=== PATIENT | female | born 1950 | race Caucasian/White ===

== ENCOUNTER → 2024-10-02 | Outpatient (CLI) | payer BC, MEDICARE, SELFPAY ==
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
== END | disposition home or self-care (01) ==
PROVIDERS: PCP Family Medicine; Referring Provider Orthopaedic Surgery; Visit Provider Orthopaedic Surgery
DX: M17.12 Unilateral primary osteoarthritis, left knee (principal)
CPT/HCPCS: 73560

== ENCOUNTER → 2024-11-06 | Outpatient (CLI) | payer MEDICARE, BC, SELFPAY ==
--- NOTE | 2024-11-06 14:52 | XR_ITS ---
Examination: Left femur 2 views Technique one AP lateral left femur 2 views Exam date and time: November 06, 2024 1527 hours INDICATIONS: Pain in the left side region this week FINDINGS: Moderate narrowing left hip joint No left hip fracture or dislocation Healed fracture distal femur with residual deformity Advanced knee osteoarthritis IMPRESSION: Moderate narrowing left hip joint Healed fracture distal left femur Advanced knee osteoarthritis
== END | disposition home or self-care (01) ==
PROVIDERS: Referring Provider Orthopaedic Surgery; Visit Provider Orthopaedic Surgery
DX: M17.12 Unilateral primary osteoarthritis, left knee (principal); M25.852 Other specified joint disorders, left hip; Z87.81 Personal history of (healed) traumatic fracture
CPT/HCPCS: 73552

== ENCOUNTER 2024-11-20 14:31 | Emergency (ER) | payer MEDICARE, BC, SELFPAY ==
--- NOTE | 2024-11-20 14:50 | EKG_ITS ---
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
[2024-11-20 14:51] VITALS: BP 175/96; PULSE 73; RESP 18; TEMP 37.1; O2SAT 97; BMI 31.2
--- NOTE | 2024-11-20 14:52 | XR_ITS ---
Examination: CT brain head without contrast. 2-D sagittal coronal reconstructions Date and time of exam:November 20, 2024 1630 hours INDICATIONS: Onset altered mental status today CTDI: vol (mGy):47 DLP: (mGycm):874 Technique: Multiple CT axial sections of the brain have been obtained, 5 mm slice thickness. Contrast has not been administered. 2-D sagittal, coronal reconstructions have been obtained Low dose protocols were performed. One or more of the following dose reduction techniques were used; automated exposure control, adjustment of the mA and/or KV according to patient size, use of iterative reconstruction technique. Findings: No significant ventricular enlargement. 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 No mass effect or midline shift Basal cisterns are not remarkable. Fourth ventricle is midline. Cranial vault intact. Impression: Negative for acute hemorrhage, mass effect or midline shift As clinically warranted, brain MRI follow-up would best assess for acute ischemic change
--- NOTE | 2024-11-20 14:53 | EDRME_ITS ---
Rapid Medical Screening Exam COUNT INCLUDES THE [facility] Arrival date/time: 11/20/24 14:31 74-year-old female with no known medical history presents to the emergency room with a chief complaint of altered mental status. at bedside states for the last month his 's mentation has progressively gotten worse. states that as of 3 days it has gotten severely worse to the point where she does not remember anything that is going on and walks around in circles. states she had some hardware removed from her spine last month and since then the symptoms began I have greeted and performed a focused initial assessment of this patient. A comprehensive ED assessment and evaluation of the patient, analysis of all test results, and completion of the medical decision making process will be conducted by additional ED providers. Chief Complaint: General Adult/Misc Complain Time Seen by Provider: 11/20/24 14:43 Vital signs: Vital Signs Temperature 98.7 F 11/20/24 14:51 Pulse Rate 73 11/20/24 14:51 Respiratory Rate 18 11/20/24 14:51 Blood Pressure 175/96 H 11/20/24 14:51 Pulse Oximetry (%) 97 11/20/24 14:51 Oxygen Delivery Method Room Air 11/20/24 14:51 Vital signs reviewed by provider: Yes
[2024-11-20 15:31] LABS: Basophils % (Auto) 1 % (0-2.5); Eosinophils # (Auto) 0.3 Thou/mm3 (0.0-0.5); Eosinophils % (Auto) 4 % (0-10); Hematocrit 35.8 % (36.0-46.0); Hemoglobin 12.3 g/dL (12.0-16.0); Immature Granulocytes % (Auto) 0 % (0-0); Immature Granulocytes Auto 0.02 Thou/mm3 (0.00-0.00); Lymphocytes # (Auto) 1.7 Thou/mm3 (1.0-4.8); Lymphocytes % (Auto) 23 % (10-50); Mean Corpuscular HGB Conc 34.4 g/dl (31.0-37.0); Mean Corpuscular Hemoglobin 29.9 pg (25.0-35.0); Mean Corpuscular Volume 87 fL (80-100); Monocytes # (Auto) 0.7 Thou/mm3 (0.0-0.8); Monocytes % (Auto) 10 % (0-12); Neutrophils # (Auto) 4.6 Thou/mm3 (1.8-7.7); Neutrophils % (Auto) 62 % (37-80); Nucleated Red Blood Cell % 0 /100 WBC (0); Platelet Count 318 Thou/mm3 (140-440); RDW Standard Deviation 39.8 fL (36.4-46.3); Red Blood Count 4.11 Miln/mm3 (4.00-5.20); White Blood Count 7.4 Thou/mm3 (3.6-11.0)
[2024-11-20 15:33] LABS: Collection Type, Urine Clean Catch; RBC,Urine 0 /hpf (0-3)
[2024-11-20 15:40] LABS: B-Type Natriuretic Peptide 41 pg/mL (0-100)
[2024-11-20 15:42] LABS: Alanine Aminotransferase 13 U/L (10-49); Albumin, Serum 4.2 gm/dL (3.4-4.8); Albumin/Globulin Ratio 1.3 (1.2-2.2); Alkaline Phosphatase 103 U/L (46-116); Anion Gap 9 (7-16); Aspartate Amino Transferase 10 U/L (0-34); BUN/Creatinine Ratio 16 Ratio (12-20); Bilirubin,Total 0.4 mg/dL (0.3-1.2); Blood Urea Nitrogen 18 mg/dL (9-23); Calcium 9.8 mg/dL (8.3-10.6); Calcium (Corrected) 9.8 mg/dL (8.5-10.1); Carbon Dioxide 26.5 mMol/L (20.0-31.0); Chloride 102 mMol/L (98-107); Creatinine (Component) 1.1 mg/dL (0.6-1.3); Estimated Creatinine Clearance 55.2 mL/min (>60); Globulin 3.2 gm/dL (2.3-3.5); Glucose 209 mg/dL (74-106); Magnesium 1.7 mg/dL (1.6-2.6); Osmolality,Calculated 281 (275-295); Potassium 3.8 mMol/L (3.4-5.1); Sodium 137 mMol/L (136-145); Total Protein 7.4 gm/dL (5.7-8.2); Troponin I < 0.020 ng/mL (0.0-0.045); eGFR 53 See Note
[2024-11-20 15:56] LABS: Amphetamine/Methamp Scrn,U Negative (Negative); Barbiturate Screen,Urine Negative (Negative); Benzodiazepines Screen,Urine Negative (Negative); Benzoylecgonine Screen, Ur Negative (Negative); Bilirubin,Urine Negative (Negative); Blood,Urine Negative (Negative); Clarity,Urine Turbid (Clear/Hazy); Color,Urine Yellow (Lt Yel-Yel); Fentanyl Screen,Urine Negative (Negative); Glucose, Urine 1+ (Negative); Hyaline Casts,Urine < 1 /hpf (0-1); Ketones,Urine Negative (Negative); Leukocyte Esterase,Urine Positive (Negative); Nitrite,Urine Negative (Negative); Opiate Screen,Urine Negative (Negative); PH,Urine 5.5 (5.0-7.0); Protein,Urine Trace (Neg - Trace); Specific Gravity,Urine 1.021 (1.001-1.035); Squamous Epithelial Cell,Urine 4 /hpf (0-5); THC Screen,Urine Negative (Negative); Urobilinogen,Urine Negative mg/dL (0.0-1.0); WBC,Urine 124 /hpf (0-5)
[2024-11-20 16:55] VITALS: BP 195/100; PULSE 67; RESP 20; TEMP 36.9; O2SAT 97
--- NOTE | 2024-11-20 17:16 | PD.EDADULT ---
ED General RME/HPI General Chief complaint: General Adult/Misc Complain Stated complaint: SURG ON 09/26. NOT RIGHT SINCE. CONFUSED. Time Seen by Provider: 11/20/24 14:43 Arrival date/time: 11/20/24 14:31 RME / HPI RME / HPI narrative: Patient is a pleasant 74 year old female who presents to the ED with her . They state that the patient has been having cognitive issues for approximately 1-2 months. Patient's states that the patient's cognitive issues seem to get worse after she had a knee surgery about 1 month ago. They describe episodes where the patient walks around in circles and mumbles. Also states that patient has been forgetful. There was an incident where that patient forgot how to open a car door. Patient denies any headache. She denies chest pain. Denies nausea or vomiting. Denies dizziness. No syncope or presyncope. Related Data Previous Rx's ?Medication ?Instructions ?Recorded cephalexin 500 mg capsule 500 mg PO QID 7 days #28 caps 11/20/24 Allergies Allergy/AdvReac Type Severity Reaction Status Date / Time No Known Allergies Allergy Verified 11/20/24 14:35 Review of Systems Review of Systems Systems Reviewed: All systems reviewed, normal except as documented ED Exam Narrative Physical exam: Constitutional: no acute distress, age appropriate, non-toxic Eyes: PERRL, conjunctivae w/o pallor, EOMI HENT: normocephalic, atraumatic. Oral mucosa moist Respiratory Effort: no stridor, effort normal, no retractions Breath sounds: Clear bilaterally; No rales, No rhonchi, No wheezing Cardiovascular: regular rhythm, S1 and S2 normal, no murmur Musculoskeletal: no deformities, no swelling, no LE edema Skin: warm, dry; No rash Neurology: alert, oriented X 4. GCS 15. 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 Cranial nerves II through XII intact. Lower extremity strength 5 out of 5 bilaterally. No pronator drift. Psychology: cooperative, normal mood Course Quality Measures none Orders Category Date Time Status Bedside Blood Glucose NOW Care 11/20/24 14:50 Completed EKG (ED ONLY) *Do not use* NOW Care 11/20/24 14:[address] head/brain wo con Stat Exams 11/20/24 14:52 Completed EKG (ED Only) Stat Exams 11/20/24 14:50 Draft BNP [B-Type Natriuretic Peptide] Stat Lab 11/20/24 15:14 Completed Blood Culture (Lab) Stat Lab 11/20/24 15:14 Received CBC Stat Lab 11/20/24 15:14 Completed Comprehensive Metabolic Panel Stat Lab 11/20/24 15:14 Completed Drug Screen,Urine Stat Lab 11/20/24 15:23 Completed Magnesium Stat Lab 11/20/24 15:14 Completed Troponin I Stat Lab 11/20/24 15:14 Completed Urinalysis Stat Lab 11/20/24 15:23 Completed Urine Culture Stat Lab 11/20/24 15:23 Received Ringers Lactated 1000 ml [Lactated Ringers] 1,000 ml Med 11/20/24 17:15 Discontinued IV 999 mls/hr [id number] [Rocephin] 1,000 mg Med 11/20/24 17:15 Discontinued SODIUM CHLORIDE 0.9% (Popper) [Ns 0.9% (P)] 50 ml IV X1 cloNIDine HCL [Catapres] Med 11/20/24 17:14 Discontinued 0.1 mg PO X1 ONE Vital Signs Vital signs: Vital Signs Temperature 98.7 F 11/20/24 14:51 Pulse Rate 73 11/20/24 14:51 Respiratory Rate 18 11/20/24 14:51 Blood Pressure 175/96 H 11/20/24 14:51 Pulse Oximetry (%) 97 11/20/24 14:51 Oxygen Delivery Method Room Air 11/20/24 14:51 [facility] Patient data External records reviewed:: [facility] previous records Clinical information provided by:: patient and family Social determinants that could affect healthcare access:: none Patient has the following chronic illnesses:: None How is presenting disease/condition affected by chronic disease/condition?: no chronic disease Evaluation data The following diagnostics were reviewed and interpreted by me:: lab results, radiology exam(s) and EKG tracing(s) Lab and/or radiology exams considered but not ordered:: None Interpretation Summary: CBC shows no leukocytosis or anemia CMP shows no electrolyte abnormalities, no JERE. LFTs less than 3x upper limit of normal UA with pyuria Troponin wnl EKG medically necessary in the evaluation of altered mental status and interpreted by me and ED physician at the time of patient evaluation. Sinus rhythm with a rate of 83. OR and QT intervals within normal limits. No ST/T changes. No STEMI. Interpretation: Normal EKG Examination: CT brain head without contrast. 2-D sagittal coronal reconstructions Date and time of exam:November 20, 2024 1630 hours INDICATIONS: Onset altered mental status today Findings: No significant ventricular enlargement. 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 No mass effect or midline shift Basal cisterns are not remarkable. Fourth ventricle is midline. Cranial vault intact. Impression: Negative for acute hemorrhage, mass effect or midline shift As clinically warranted, brain MRI follow-up would best assess for acute ischemic change Medications Medications considered but not ordered:: n/a Medication administrations:: Medication Administration History Discontinued Medications Clonidine (Clonidine Hcl 0.1 Mg Tablet) 0.1 mg PO X1 ONE Stop: 11/20/24 17:15 Last Admin: 11/20/24 17:25 Dose: 0.1 mg Documented By: PAOLO Lactated Ringer's (Lactated Ringers) 1,000 mls @ 999 mls/hr IV .Q1H1M ONE Stop: 11/20/24 18:15 Last Admin: 11/20/24 17:26 Dose: Not Given Documented By: PAOLO Non-Admin Reason: Patient Refused Ceftriaxone Sodium 1,000 mg/ (Sodium Chloride) 50 mls @ 100 mls/hr IV X1 ONE Stop: 11/20/24 17:44 Last Admin: 11/20/24 17:27 Dose: Not Given Documented By: PAOLO Non-Admin Reason: Patient Refused see above Consultations Consultation(s) initiated? (list below): Yes Consultation #1 (Physician, Specialty, Details): 1530: Case discussed with neurologist on-call, Dr. Bond. Agrees that there is no indication for inpatient care. She will see the patient and follow on an outpatient basis. She agrees that this is likely new onset dementia. Time: 15:30 Diagnosis Differential Diagnosis ED Complaint MDM: See MDM Most likely diagnosis given after review of the tests above:: Cognitive issues Admission Indicated Admission indicated?: not indicated Explain why admission is indicated or not indicated:: See MDM Admission Request Was there a request for admission?: No Disposition Plan Disposition Plan: Discharge Discharge Attestation Discharge Attestation: The patient and all family members were given an opportunity to ask questions and understood the discharge instructions. Discharge instructions specifically effects, indications for sooner follow up or return to the emergency department, and the expected course of current diagnosis. Patient condition: Stable Medical Decision Making [facility] Narrative [facility] Narrative: 74-year-old female presents with complaint of cognitive issues and forgetfulness. Differential diagnoses include TIA, stroke, altered mental status, dementia, sepsis Low suspicion for sepsis as there is no fever, no tachycardia, patient does not appear ill or toxic. Do not suspect TIA or stroke based on history and exam, patient has a normal neurologic exam. Patient is not acutely altered. Suspect new onset dementia. Patient does have a mild urinary tract infection that will be treated outpatient. I discussed the patient's case with neurologist on-call, Dr. Bond, and she agrees that this is likely new dementia. She we will be happy to follow the patient on an outpatient basis. No indication at this time for inpatient management. Patient to follow-up with primary care and with Dr. Bond. Strict return to ED precautions given. Differential Diagnosis Differential Diagnosis: See MDM Lab Data 11/20/24 15:14 11/20/24 15:14 Labs: Lab Results 11/20/24 11/20/24 Range/Units 15:14 15:23 WBC 7.4 (3.6-11.0) Thou/mm3 RBC 4.11 (4.00-5.20) Miln/mm3 Hgb 12.3 (12.0-16.0) g/dL Hct 35.8 L (36.0-46.0) % MCV 87 (80-100) fL MCH 29.9 (25.0-35.0) pg MCHC 34.4 (31.0-37.0) g/dl RDW Std Deviation 39.8 (36.4-46.3) fL Plt Count 318 (140-440) Thou/mm3 Neut % (Auto) 62 (37-80) % Lymph % (Auto) 23 (10-50) % [place] % (Auto) 10 (0-12) % Eos % (Auto) 4 (0-10) % Baso % (Auto) 1 (0-2.5) % Neut # (Auto) 4.6 (1.8-7.7) Thou/mm3 Lymph # (Auto) 1.7 (1.0-4.8) Thou/mm3 [place] # (Auto) 0.7 (0.0-0.8) Thou/mm3 Eos # (Auto) 0.3 (0.0-0.5) Thou/mm3 Baso # (Auto) 0.0 (0.0-0.2) Thou/mm3 Immature Gran # (Auto) 0.02 H (0.00-0.00) Thou/mm3 Absolute Nucleated RBC 0.00 (0.00-0.00) Thou/mm3 Immature Gran % 0 (0-0) % Nucleated RBC % 0 (0) /100 WBC Sodium 137 (136-145) mMol/L Potassium 3.8 (3.4-5.1) mMol/L Chloride 102 (98-107) mMol/L Carbon Dioxide 26.5 (20.0-31.0) mMol/L Anion Gap 9 (7-16) BUN 18 (9-23) mg/dL Creatinine 1.1 (0.6-1.3) mg/dL Estim Creat Clear Calc 55.2 L (>60) mL/min eGFR 53 L (60 - ) See Note BUN/Creatinine Ratio 16 (12-20) Ratio Glucose 209 H (74-106) mg/dL Calculated Osmolality 281 (275-295) Calcium 9.8 (8.3-10.6) mg/dL Corrected Calcium 9.8 (8.5-10.1) mg/dL Magnesium 1.7 (1.6-2.6) mg/dL Total Bilirubin 0.4 (0.3-1.2) mg/dL AST 10 (0-34) U/L ALT 13 (10-49) U/L Alkaline Phosphatase 103 (46-116) U/L Troponin I < 0.020 (0.0-0.045) ng/mL B-Natriuretic Peptide 41 (0-100) pg/mL Total Protein 7.4 (5.7-8.2) gm/dL Albumin 4.2 (3.4-4.8) gm/dL Globulin 3.2 (2.3-3.5) gm/dL Albumin/Globulin Ratio 1.3 (1.2-2.2) Ur Collection Type Clean Catch Urine Color Yellow (Lt Yel-Yel) Urine Clarity Turbid A (Clear/Hazy) Urine pH 5.5 (5.0-7.0) Ur Specific [place] 1.021 (1.001-1.035) Urine Protein Trace (Neg - Trace) Urine Glucose (UA) 1+ A (Negative) Urine Ketones Negative (Negative) Urine Blood Negative (Negative) Urine Nitrite Negative (Negative) Urine Bilirubin Negative (Negative) Urine Urobilinogen (Auto) Negative (0.0-1.0) mg/dL Ur Leukocyte Esterase Positive (Negative) Urine RBC 0 (0-3) /hpf Urine WBC 124 H (0-5) /hpf Ur Squamous Epith Cells 4 (0-5) /hpf Urine Bacteria None (None) Hyaline Casts < 1 (0-1) /hpf Urine Opiates Screen Negative (Negative) Urine Fentanyl Screen Negative (Negative) Ur Barbiturates Screen Negative (Negative) U Amphetamin/Meth Scrn Negative (Negative) U Benzodiazepines Scrn Negative (Negative) U Cocaine Metab Screen Negative (Negative) U Marijuana (THC) Screen Negative (Negative) Discharge Plan Plan Patient Disposition: HOME (Self Care) Prescriptions/Referrals Prescriptions/Med Rec: New cephalexin 500 mg capsule 500 mg PO QID 7 Days Qty: 28 0RF Referrals: Yanique Sweeney MD [Primary Care Provider] - In 1 week Ranjeet Bond MD [Physician] - In 1 week Problem List Clinical Impression: Cognitive decline, UTI (urinary tract infection) Patient/Caregiver Discharge Instructions Education Materials: Cognitive Impairment Mild, ED CYSTITIS Female Adult Additional Instructions: Follow up with your PCP in 1-2 days for recheck of BP and blood sugar. Follow up with Dr. Bond's office. See above for contact information. Return to the ED at any time for new or worsening symptoms. Print Language: Greenlandic Stand Alone Forms: Janell Award Info., Patient Portal Info Letter
[2024-11-20 17:25] VITALS: BP 197/95; PULSE 67
[2024-11-20] MEDS: cloNIDine HCL 0.1 MG TABLET PO (17:25)
== END 2024-11-20 18:11 | disposition home or self-care (01) ==
PROVIDERS: Nurse Practitioner Family; Emergency Provider Emergency Medicine; PCP Family Medicine
DX: N39.0 Urinary tract infection, site not specified (principal); R41.81 Age-related cognitive decline; I49.1 Atrial premature depolarization
CPT/HCPCS: 36415; 70450; 80053; 80307; 81001; 83735; 83880; 84484; 85025; 87040; 87077; 87086; 87186; 93005; 99284; A9270

== ENCOUNTER 2024-11-26 19:24 | Inpatient (IN) | payer MEDICARE, BC, SELFPAY ==
[2024-11-26] VITALS (23 sets, daily range): BP systolic 159–232; BP diastolic 68–144; PULSE 65–86; RESP 15–26; TEMP 36.7–37.1; O2SAT 89–98; BMI 35.0
--- NOTE | 2024-11-26 19:34 | PD.EDNEURO ---
Neuro Symptoms Deficit-RME/HPI General Chief Complaint: Head Injury Stated Complaint: ABNORMAL CT Time Seen by Provider: 11/26/24 19:30 Arrival date/time: 11/26/24 19:24 Limitations: no limitations RME / HPI RME / HPI Narrative: DR. FUENTES MAIN ED EVALUATION: 74-year-old female presenting to the emergency department with dysphagia since November 20 that is ongoing, who is sent over from MRI for reported brain bleed . Last normal was November 20. Blood pressure is noted to be 230/126. The patient is complaining of headache, blurry vision, and neck pain. No weakness or numbness. She saw her primary care physician 2 days ago and was treated for UTI even though she did not have symptoms. Past surgical history lower extremity removal of a pin, right third. Right knee replacement over 20 years ago. No history of diabetes. Diagnosed with past blood pressure elevation 2 days ago by primary care was not started on medications yet. Family history: Mother living-90 years old alive diabetes. Father- secondary to pancreas. Social history: Non-smoker. Denies drug use. Related Data Previous Rx's ?Medication ?Instructions ?Recorded cephalexin 500 mg capsule 500 mg PO QID 7 days #28 caps 11/20/24 Allergies Allergy/AdvReac Type Severity Reaction Status Date / Time No Known Allergies Allergy Verified 11/20/24 14:35 Review of Systems Review of Systems Systems Reviewed: All systems reviewed, normal except as documented Narrative Review of Systems: GEN: No fever, no chills, no weight loss EYES: No discharge, + blurry vision, no pain HEENT: No ear pain, no congestion, no sore throat PULM: No shortness of breath, no cough, no congestion CV: No chest pain, no dyspnea on exertion, no palpitations GI: No nausea, no vomiting, no diarrhea, no pain, no constipation : No frequency, no urgency and no dysuria MUSC/SKEL: + neck pain, no back pain SKIN: No rash PSYCH: No hallucinations, no depression HEME/LYMPH: No easy bleeding or bruising tendencies NEURO: No weakness, + headache Past Medical History Social History SMOKING STATUS: Never smoker SUBSTANCE USE: does not use ALCOHOL: Never Past Medical History Comments PMH COMMENT: Past surgical history lower extremity removal of a pin, right third. Right knee replacement over 20 years ago. No history of diabetes. Diagnosed with past blood pressure elevation 2 days ago by primary care was not started on medications yet. Family history: Mother living-90 years old alive diabetes. Father- secondary to pancreas. ED Exam General Limitations: Present no limitations General appearance: Present alert and in no apparent distress Head Head exam: Present atraumatic, normocephalic and normal inspection Eye Eye exam: Present normal appearance, PERRL and EOMI ENT ENT exam: Present normal exam, normal oropharynx and mucous membranes moist Neck Neck exam: Present normal inspection, full ROM and trachea midline Chest Chest inspection: Present normal inspection and symmetric chest wall rise Respiratory Respiratory exam: Present normal lung sounds bilaterally Cardiovascular Cardiovascular exam: Present regular rate, normal rhythm and normal heart sounds Abdominal Exam Abdominal exam: Present soft and normal bowel sounds Extremities Exam Extremities exam: Present normal inspection and full ROM Back Exam Back exam: Present normal inspection and full ROM Neurological Exam Neurological exam: Present alert, oriented X3, CN II-XII intact and other (No facial weakness, no dysarthria, no dysphasia; normal sensation to touch; normal finger to nose test; GCS of 15. FROM of all 4 extremities with symmetrical strength. 5/5.) Psychiatric Psychiatric exam: Present normal affect and normal mood Skin Skin exam: Present warm, dry, intact and normal color Course Course Course Narrative: 1930: Stroke alert initiated. Orders made at this time are congruent stroke protocol. 1950: Telemetry neuro at bedside, Dr Sotomayor. Quality Measures none Orders Category Date Time Status Bedside Blood Glucose NOW Care 11/26/24 19:38 Active COVID-19 Screening Questionnaire NOW Care 11/26/24 22:04 Active Data Warehouse Specialist NOW Care 11/26/24 19:38 Active Continuous Pulse Oximetry NOW Care 11/26/24 19:38 Active Decision to Admit X1 Care 11/26/24 22:04 Completed EKG (ED ONLY) *Do not use* NOW Care 11/26/24 19:38 Completed Insert IV NOW Care 11/26/24 19:38 Active Miscellaneous Nursing Order X1 Care 11/26/24 22:37 Active NIH Stroke Scale now Care 11/26/24 19:38 Active NPO NOW Care 11/26/24 19:38 Active Neuro Check Q15MIN Care 11/26/24 19:39 Completed Nurse Swallow Screen x1 Care 11/26/24 19:38 Active Consult to Neurology / Tele-Neurology Routine Cons 11/26/24 19:38 Active EKG (ED Only) Stat Exams 11/26/24 19:38 Draft B-Type Natriuretic Peptide Stat Lab 11/26/24 19:36 Completed Beta HCG,Quantitative Stat Lab 11/26/24 19:36 Completed CBC Stat Lab 11/26/24 19:36 Completed Comprehensive Metabolic Panel Stat Lab 11/26/24 19:36 Completed Drug Screen,Urine Stat Lab 11/26/24 22:19 Completed HCG Titer if Positive Stat Lab 11/26/24 19:36 Completed Magnesium Stat Lab 11/26/24 19:36 Completed Partial Thromboplastin Time Stat Lab 11/26/24 19:36 Completed Prothrombin Time with INR Stat Lab 11/26/24 19:36 Completed Troponin I Stat Lab 11/26/24 19:36 Completed Urinalysis Stat Lab 11/26/24 22:19 Completed Dexamethasone Inj [Decadron Inj] Med 11/26/24 20:08 Discontinued 10 mg IVP X1 ONE Lisinopril [Prinivil] Med 11/26/24 22:45 Hold 20 mg PO QDAY Lisinopril [Prinivil] Med 11/26/24 22:15 Discontinued 40 mg PO QDAY Nicardipine/Ns 20Mg Ivpb [Cardene Ivpb] Med 11/26/24 20:08 Discontinued 20 mg in 200 ml IV 5 mg/hr Ondansetron Inj [Zofran Inj] Med 11/26/24 19:38 Discontinued 4 mg IV Q4HR PRN levETIRAcetam INJ [Keppra Inj] Med 11/26/24 20:08 Discontinued 1,000 mg IVP X1 ONE Vital Signs Vital signs: Vital Signs Temperature 98.8 F 11/26/24 19:52 Pulse Rate 70 11/26/24 19:52 Respiratory Rate 17 11/26/24 19:52 Blood Pressure 232/126 H 11/26/24 19:52 Pulse Oximetry (%) 95 11/26/24 19:52 Oxygen Delivery Method Room Air 11/26/24 19:52 Procedures -ED EKG Interpretation #1: Date of EK11/26/24 Time of EK:03 Rate: 72 Interpretation: Interpreted by me Additional EKG comment: sinus rhythm, rate 72, borderline left axis deviation, QTc 451 Neuro Symptoms / Deficit MDM Narrative MDM Narrative:: I, Anabell Blane, am scribing for and in the presence of Dr. Fuentes. Patient presents to the emergency department from MRI with a abnormal MRI and possibly a bleed . Patient immediately placed into room. Blood pressure is noted to be 230/126. The patient is complaining of headache, blurry vision, neck pain, and no weakness or numbness. She reports that she has had difficulty speaking since November 20. She saw her primary care physician 2 days ago and was treated for UTI even though she did not have symptoms. Normal stroke scale on arrival. 1999: Keppra IV, nicardipine drip to be normotensive as per telemetry neuro. Seizure precautions placed. 2014: Discussed with Dr. Tarango states that he told the durable medical equipment technician to send it to telemetry neuro. Teleneuro consulted approximately 2019 and still pending read. Teleneurologist states that once the interpretation is back and they may need transfer to higher level of care for biopsy. 2053 noticed hCG is positive. Nurses repeating lab. 2199-Discussed with teleneurology at approximately 2199. Request admit to the hospitalist service for stroke workup to include SANDRA, Holter monitor, aspirin 325 now and 81 mg daily, and to keep blood pressure normotensive. 2234: Internal medicine made me aware of Dr. Loomis's read on the patient's outpatient MRI. The medicine team wouls like to switch the patient to lisinopril PO and if the patient is having an acute stroke, have the patient's goal blood pressure be under 180-90. Requests to wean the patient off of Nicardipine. 0300: Medicine has been admitted to the medicine team however [place] did call to say that there might be an abnormality on her carotid ultrasound. The resident who accepted this patient has been called to report the finding to see if he needs to order any other studies inpatient. Patient data External records reviewed:: [facility] previous records (Reviewed last admission discharge dated 11/20/24, patient admitted for the following: Cognitive decline) Clinical information provided by:: patient and family Social determinants that could affect healthcare access:: none Patient has the following chronic illnesses:: PMHx: Past surgical history lower extremity removal of a pin, right third. Right knee replacement over 20 years ago. No history of diabetes. Diagnosed with past blood pressure elevation 2 days ago by primary care was not started on medications yet. Family history: Mother living-90 years old alive diabetes. Father- secondary to pancreas. Social history: Non-smoker. Denies drug use. How is presenting disease/condition affected by chronic disease/condition?: exacerbated by Evaluation data The following diagnostics were reviewed and interpreted by me:: lab results and EKG tracing(s) Lab and/or radiology exams considered but not ordered:: none Interpretation Summary: See above under MDM narrative. RADIOLOGY Procedure(s): MR head/brain wo/w con Accession Number(s): [id number] cc: Ousmane Loomis MD; Iona Espitia PA-C~ Examination: MRI of brain without intravenous contrast. MRI brain with intravenous contrast. Date and time of exam:November 26, 2024 1804 hrs. Comparison March 16, 2013 Indications: Disorientation today Technique: Multiple axial and sagittal images of the brain to been obtained. Siemens high-resolution 1.52 Ana short bore scanner utilized. Sagittal sections, T1 weighted images, TR 500, TE 14, are performed. Axial sections proton-density and T2-weighted images have been obtained. Inversion recovery axial images, TR 9260, TE 111, TR 2500. Diffusion weighted images, axial sections, TR 4800, TE 128, B value 1000. Axial sections, ADC map, TR 4800, TE 128. Axial and coronal images were also obtained post 19 cc gadolinium administered intravenously. Findings:: Enlargement of the sella turcica is not present. The optic chiasm and infundibular stalk are not remarkable. There is no localized enlargement of the medulla or ernesto. Fourth ventricle and cerebellar tonsils appear normal in position. No subacute area of hemorrhage density is seen. Fourth ventricle is midline. Mass in the cerebellopontine angle region is not evident. 7th and 8th nerve complexes exhibit symmetry Globes are symmetrical Orbital musculature including medial lateral rectus muscles do not exhibit abnormality Increased white matter signal is prominent Effacement of the cortical sulcal markings is not identified. Mass effect upon the ventricular system is not identified. 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 Dictated By: Ousmane Loomis MD Medications / Prescriptions Medications or Prescriptions considered but not ordered:: none Medication administrations:: Medication Administration History Acetaminophen (Acetaminophen 325 Mg Tablet) 650 mg PO Q6H PRN PRN Reason: Fever >100 or pain 1-3 Stop: 12/27/24 00:02 Aspirin (Aspirin Ec 81 Mg Tabec) 81 mg PO QDAY [facility] Stop: 12/27/24 08:59 Atorvastatin Calcium (Atorvastatin Calcium 10 Mg Tablet) 40 mg PO HS [facility] Stop: 12/27/24 00:09 Last Admin: 11/27/24 00:41 Dose: 40 mg Documented By: JEFF Cephalexin HCl (Cephalexin 250 Mg Capsule) 500 mg PO QID [facility] Stop: 12/04/24 00:14 Last Admin: 11/27/24 00:41 Dose: 500 mg Documented By: JEFF Labetalol HCl (Labetalol Inj 5 Mg/Ml Vial 20 Ml) 10 mg IVP Q2H PRN PRN Reason: sbp >180, Hold if HR <60 Stop: 12/27/24 03:56 Lisinopril (Lisinopril 20 Mg Tablet) 20 mg PO QDAY [facility] Stop: 12/26/24 22:44 Last Admin: 11/26/24 23:55 Dose: Not Given Documented By: JEFF Non-Admin Reason: hold per MD ZIMMERMAN Ondansetron HCl (Ondansetron Inj 2 Mg/Ml Inj 2 Ml) 4 mg IV Q6H PRN; Protocol PRN Reason: NAUSEA OR VOMITING Stop: 12/27/24 00:02 Discontinued Medications Aspirin (Aspirin 325 Mg Tablet) 325 mg PO X1 ONE Stop: 11/27/24 00:08 Last Admin: 11/27/24 00:40 Dose: 325 mg Documented By: JEFF Dexamethasone Sodium Phosphate (Dexamethasone Sod Phos Inj 10 Mg/Ml Vial) 10 mg IVP X1 ONE; Protocol Stop: 11/26/24 20:09 Last Admin: 11/26/24 20:20 Dose: 10 mg Documented By: JEFF Nicardipine/Sodium Chloride (Cardene Ivpb) 20 mg in 200 mls @ 50 mls/hr IV .Q4H PRN; Protocol PRN Reason: PER PROTOCOL Stop: 12/26/24 20:07 Last Titration: 11/26/24 23:55 Dose: 0 mg/hr, 0 mls/hr Documented By: Admin: 11/26/24 23:25 Dose: 7.5 mg/hr, 75 mls/hr Documented By: Titration: 11/26/24 23:25 Dose: Infused Documented By: Titration: 11/26/24 21:42 Dose: 7.5 mg/hr, 75 mls/hr Documented By: Admin: 11/26/24 20:21 Dose: 5 mg/hr, 50 mls/hr Documented By: JEFF Labetalol HCl (Labetalol Inj 5 Mg/Ml Vial 20 Ml) 10 mg IVP Q2H PRN PRN Reason: sbp 180mmHg, Hold if HR <60 Stop: 12/27/24 03:56 Levetiracetam (Levetiracetam Inj 100 Mg/Ml Vial 5ml) 1,000 mg IVP X1 ONE Stop: 11/26/24 20:09 Last Admin: 11/26/24 20:20 Dose: 1,000 mg Documented By: JEFF Lisinopril (Lisinopril 20 Mg Tablet) 40 mg PO QDAY [facility] Stop: 12/26/24 22:14 Last Admin: 11/26/24 22:57 Dose: Not Given Documented By: JEFF Non-Admin Reason: Discontinued Ondansetron HCl (Ondansetron Inj 2 Mg/Ml Inj 2 Ml) 4 mg IV Q4HR PRN PRN Reason: NAUSEA OR VOMITING Stop: 12/26/24 19:37 see above Consultations Consultation(s) initiated? (list below): Yes Consultation #1 (Physician, Specialty, Details): Spoke with Dr. Sotomayor from teleneurology. Consultation #2 (Physician, Specialty, Details): Discussed test HPI, PMHx, lab, radiology results and/or management with hospitalist. Will admit for further evaluation and management. Accepts patient for admission. Time: 22:00 Diagnosis Neuro Differential Diagnosis: other (tumor, bleed, bleeding around the tumor, seizure) Most likely diagnosis given after review of the tests above:: see below Admission Indicated Admission indicated?: indicated Admission Request Was there a request for admission?: Yes Admission Attestation Admission request attestation: Discussed case with [] from Hospitalist service regarding admission. Discussed patients ED course, exam findings, labs, and radiology results. The Hospitalist [agrees,declines] to accept the patient for admission. Disposition Plan Disposition Plan: Admit Critical Care Time Critical Care Time Critical Care Time: Yes Total Critical Care Time (min.): 60 Attestation: The high probability of sudden, clinically significant deterioration in the patient?s condition required the highest level of my preparedness to intervene urgently. The services I provided to this patient were to treat and/or prevent clinically significant deterioration. Services included the following: chart data review, reviewing nursing notes and/or old charts, documentation time, events solutions consultant collaboration regarding findings and treatment options, medication orders and management, direct patient care, vital sign assessments and ordering, interpreting and reviewing diagnostic studies and lab tests. Aggregate critical care time includes only time during which I was engaged in work directly related to the patient?s care, as described above, whether at bedside or elsewhere in the Emergency Department. It did not include time spent performing other reported procedures or the services of residents, students, nurses or physician assistants. Discharge Plan Plan Patient Disposition: Admit Acute Care w/in Hospital Patient condition on transfer: Stable Problem List Clinical Impression: Stroke
--- NOTE | 2024-11-26 19:36 | PC.NURSE ---
Case # [id number] for tele neuro
--- NOTE | 2024-11-26 19:38 | EKG_ITS ---
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
--- NOTE | 2024-11-26 19:50 | PC.NURSE ---
tele neuro MD Sotomayor speaking with pt
[2024-11-26 19:58] LABS: Basophils % (Auto) 1 % (0-2.5); Eosinophils # (Auto) 0.3 Thou/mm3 (0.0-0.5); Eosinophils % (Auto) 4 % (0-10); Hematocrit 36.2 % (36.0-46.0); Hemoglobin 12.4 g/dL (12.0-16.0); Immature Granulocytes % (Auto) 0 % (0-0); Immature Granulocytes Auto 0.03 Thou/mm3 (0.00-0.00); Lymphocytes # (Auto) 2.5 Thou/mm3 (1.0-4.8); Lymphocytes % (Auto) 33 % (10-50); Mean Corpuscular HGB Conc 34.3 g/dl (31.0-37.0); Mean Corpuscular Hemoglobin 29.6 pg (25.0-35.0); Mean Corpuscular Volume 86 fL (80-100); Monocytes # (Auto) 0.8 Thou/mm3 (0.0-0.8); Monocytes % (Auto) 10 % (0-12); Neutrophils % (Auto) 52 % (37-80); Nucleated Red Blood Cell % 0 /100 WBC (0); Platelet Count 334 Thou/mm3 (140-440); RDW Standard Deviation 39.7 fL (36.4-46.3); Red Blood Count 4.19 Miln/mm3 (4.00-5.20); White Blood Count 7.7 Thou/mm3 (3.6-11.0)
[2024-11-26 20:14] LABS: Partial Thromboplastin Time 27.2 Seconds (22.0-36.0); Prothrombin Time 11.2 Seconds (9.0-12.2)
--- NOTE | 2024-11-26 20:16 | PD.TNEURO ---
Tele Neuro Consultation Consultation Date 11/26/24 Most Recent Vital Signs Last Vital Signs Temp 98.8 F 11/26/24 19:52 Pulse 68 11/26/24 19:52 Resp 17 11/26/24 19:52 BP 232/126 H 11/26/24 19:52 Pulse Ox 95 11/26/24 19:52 O2 Del Method Room Air 11/26/24 19:52 Laboratory-Coagulation Panel PT 11.2 Seconds (9.0-12.2) 11/26/24 19:36 INR 1.0 (0.9-1.3) 11/26/24 19:36 APTT 27.2 Seconds (22.0-36.0) 11/26/24 19:36 Consultation Narrative [facility] TeleNeurology Consult Services Patient Name:???Annalise Rojas Date of :???1950 Date of Service:???11/26/2024 19:35:55 Diagnosis:?I63.89 - Cerebrovascular accident (CVA) due to other mechanism (HCCC) Impression: ?This consult was conducted in real-time using interactive audio and video technology. Patient was informed of the technology being used for this visit and agreed to proceed. Patient located in hospital and provider located at home/office setting. ? ?This is a 74 year old F with HTN who presents to [place], [place] at 11/26/2024 19:34:00 for complaints of abnormal MRI. ? ?She had an event 1 week ago of transient aphasia. The patient reports that the event resolved spontaneously, and she subsequently underwent a non-contrast computed tomography (CT) scan of the head, which was reported as negative. An outpatient MRI brain was ordered for further assessment. ? ?The patient underwent the MRI brain study on an outpatient basis earlier today. Following the completion of the study, the radiology personnel, possibly a power generation technician?, informed the patient that the MRI findings were abnormal and advised her to seek immediate evaluation in the emergency department. However, the patient states that the radiology personnel refused to provide any specific details regarding the nature of the abnormality. ? ?Upon presentation to the emergency department, the patient denies experiencing any current symptoms. A focused neurological examination reveals a NIHSS score of 0, indicating no evidence of neurological deficits. The patient appears cheerful and in no apparent distress. She also denies any history of malignancies or other significant medical conditions. Of note, though, she does not get her routine recommended cancer screening (colonoscopy, etc). ? ?The radiologist unfortunately has not put in a note yet for this MRI, despite it being performed hours ago and reportedly containing something requiring stat ED visit. I reviewed the MRI personally. There appears to be a right posterior quadrant lesion with contrast enhancement, which per my review could represent a small mass, but differential includes demyelinating disease, subacute stroke, possibly older scar/stroke. Final radiology expertise and read is still pending. The ED doctor is trying to reach radiology as well. Ultimately, radiololgy did read the MRI, and per their extertise was able to identify this rather as a subacute astroke, which is reassuring. This likely occured when she presented several days ago, but wasnt seen on imaging as only a CTH was done. Recommendations below. Recommendations: ?Goal normotension ?Patient no longer required any additional levetiracetam ?Aspirin 325 mg once now, then 81 mg daily. ?Atorvastatin 40 mg daily. ?TTE without bubble in hospital and Holter monitor on discharge. ?HbA1C, Lipid Panel, TSH. ?Lifestyle Modifications: Weight management (goal healthy BMI), smoking cessation if smoker, Mediterranean diet, exercise (moderate intensive aerobic exercise at least 3 days of the week for 20-60 minutes at a time per AHA guidelines, or as tolerated), active lifestyle, outpatient goal normotension, outpatient goal LDL <70. PCP to assist with these modifications and goals. ?Vessel imaging with MRA head without contrast and neck with contrast (routine, diagnostic), versus bilateral carotid doppler if unable. Advanced Imaging: CTA deferred because: Current physical exam at the time of my assessment is not highly suggestive of an acute surgically intervenable large vessel occlusion. Additionaly LKW >7 days. Should the physical exam worsen in the future, please reconsider advanced imaging and also urgently notify [facility], the neurology team, and/or call a new Stroke Alert. Metrics: Last Known Well: Unknown Dispatch Time: 11/26/2024 19:35:55 Arrival Time: 11/26/2024 19:34:00 Initial Response Time: 11/26/2024 19:43:30Symptoms: abnormal MRI . Initial patient interaction: 11/26/2024 19:48:58 NIHSS Assessment Completed: 11/26/2024 19:54:00Patient is not a candidate for Thrombolytic. Thrombolytic Medical Decision: 11/26/2024 19:54:00Patient was not deemed candidate for Thrombolytic because of following reasons: LKW outside 4.[address] unavailable - mri was done Primary Provider Notified of Diagnostic Impression and Management Plan on: 11/26/2024 20:16:11 History of Present Illness:Patient is a 74 year old Female. Patient was brought by private transportation with symptoms of abnormal MRI . This consult was conducted in real-time using interactive audio and video technology. Patient was informed of the technology being used for this visit and agreed to proceed. Patient located in hospital and provider located at home/office setting. This is a 74 year old F with HTN who presents to [place], [place] at 11/26/2024 19:34:00 for complaints of abnormal MRI. She had an event 1 week ago of transient aphasia. The patient reports that the event resolved spontaneously, and she subsequently underwent a non-contrast computed tomography (CT) scan of the head, which was reported as negative. An outpatient MRI brain was ordered for further assessment. The patient underwent the MRI brain study on an outpatient basis earlier today. Following the completion of the study, the radiology personnel, possibly a power generation technician?, informed the patient that the MRI findings were abnormal and advised her to seek immediate evaluation in the emergency department. However, the patient states that the radiology personnel refused to provide any specific details regarding the nature of the abnormality. Upon presentation to the emergency department, the patient denies experiencing any current symptoms. A focused neurological examination reveals a NIHSS score of 0, indicating no evidence of neurological deficits. The patient appears cheerful and in no apparent distress. She also denies any history of malignancies or other significant medical conditions. Of note, though, she does not get her routine recommended cancer screening (colonoscopy, etc). Past Medical History: Other PMH:? HTN Medications: No Anticoagulant use? No Antiplatelet use Reviewed EMR for current medications Allergies:? Reviewed Social History: Drug Use: No Family History: There is no family history of premature cerebrovascular disease pertinent to this consultation ROS : 14 Points Review of Systems was performed and was negative except mentioned in HPI. Past Surgical History: There Is No Surgical History Contributory To Today?s Visit Examination: BP(232/126),?Pulse(68), 1A: Level of Consciousness - Alert; keenly responsive?+ 0 1B: Ask Month and Age - Both Questions Right?+ 0 1C: Blink Eyes & Squeeze Hands - Performs Both Tasks?+ 0 2: Test Horizontal Extraocular Movements - Normal?+ 0 3: Test Visual Byrd - No Visual Loss?+ 0 4: Test Facial Palsy (Use Grimace if Obtunded) - Normal symmetry?+ 0 5A: Test Left Arm Motor Drift - No Drift for 10 Seconds?+ 0 5B: Test Right Arm Motor Drift - No Drift for 10 Seconds?+ 0 6A: Test Left Leg Motor Drift - No Drift for 5 Seconds?+ 0 6B: Test Right Leg Motor Drift - No Drift for 5 Seconds?+ 0 7: Test Limb Ataxia (FNF/Heel-Mejía) - No Ataxia?+ 0 8: Test Sensation - Normal; No sensory loss?+ 0 9: Test Language/Aphasia - Normal; No aphasia?+ 0 10: Test Dysarthria - Normal?+ 0 11: Test Extinction/Inattention - No abnormality?+ 0 NIHSS Score:?0 Pre-Morbid Modified [place] Scale:0 Points = No symptoms at all Spoke with :?ed provider This consult was conducted in real time using interactive audio and video technology. Patient was informed of the technology being used for this visit and agreed to proceed. Patient located in hospital and provider located at home/office setting. Patient is being evaluated for possible acute neurologic impairment and high probability of imminent or life-threatening deterioration. I spent total of 45 minutes providing care to this patient, including time for face to face visit via telemedicine, review of medical records, imaging studies and discussion of findings with providers, the patient and/or family. Dr Claudy Sotomayor [facility] For Inpatient follow-up with [facility] physician please call [facility] at . As we are not an outpatient service for any post hospital discharge needs please contact the hospital for assistance. If you have any questions for the [facility] physicians or need to reconsult for clinical or diagnostic changes please contact us via [facility] at .
[2024-11-26 20:19] LABS: Alanine Aminotransferase 17 U/L (10-49); Albumin, Serum 4.2 gm/dL (3.4-4.8); Albumin/Globulin Ratio 1.3 (1.2-2.2); Alkaline Phosphatase 100 U/L (46-116); Anion Gap 6 (7-16); Aspartate Amino Transferase 15 U/L (0-34); BUN/Creatinine Ratio 11 Ratio (12-20); Bilirubin,Total 0.4 mg/dL (0.3-1.2); Blood Urea Nitrogen 13 mg/dL (9-23); Calcium 9.7 mg/dL (8.3-10.6); Calcium (Corrected) 9.7 mg/dL (8.5-10.1); Chloride 102 mMol/L (98-107); Creatinine (Component) 1.2 mg/dL (0.6-1.3); Estimated Creatinine Clearance 50.1 mL/min (>60); Globulin 3.2 gm/dL (2.3-3.5); Glucose 138 mg/dL (74-106); Magnesium 1.8 mg/dL (1.6-2.6); Osmolality,Calculated 275 (275-295); Potassium 3.5 mMol/L (3.4-5.1); Sodium 137 mMol/L (136-145); Total Protein 7.4 gm/dL (5.7-8.2); Troponin I < 0.020 ng/mL (0.0-0.045); eGFR 48 See Note
[2024-11-26 20:20] LABS: B-Type Natriuretic Peptide 84 pg/mL (0-100)
[2024-11-26] MEDS: levETIRAcetam INJ 100 MG/ML VIAL 5ML 1000 MG IVP (20:20)
[2024-11-26] MEDS: DEXAMETHASONE SOD PHOS INJ 10 MG/ML VIAL IVP (20:20)
[2024-11-26] MEDS: NICARDIPINE/NS 20MG IVPB 20 MG/200 ML BAG 50 MG IV (20:21)
[2024-11-26 20:32] LABS: Beta HCG,Quantitative 9 mIU/mL (<5.0); HCG Titer if Positive Positive
--- NOTE | 2024-11-26 21:28 | PC.NURSE ---
notifeied MD Kunz pt face is flushed. no new orders recived
--- NOTE | 2024-11-26 21:35 | PC.NURSE ---
MD Seay in room assessing pt flushed face
[2024-11-26 22:28] LABS: Collection Type, Urine Voided
[2024-11-26 22:35] LABS: Bilirubin,Urine Negative (Negative); Blood,Urine Negative (Negative); Clarity,Urine Clear (Clear/Hazy); Color,Urine Colorless (Lt Yel-Yel); Glucose, Urine Negative (Negative); Ketones,Urine Negative (Negative); Leukocyte Esterase,Urine Negative (Negative); Nitrite,Urine Negative (Negative); Protein,Urine Negative (Neg - Trace); RBC,Urine 1 /hpf (0-3); Specific Gravity,Urine 1.008 (1.001-1.035); Squamous Epithelial Cell,Urine 1 /hpf (0-5); Urobilinogen,Urine Negative mg/dL (0.0-1.0); WBC,Urine 1 /hpf (0-5)
[2024-11-26 22:40] LABS: Amphetamine/Methamp Scrn,U Negative (Negative); Barbiturate Screen,Urine Negative (Negative); Benzodiazepines Screen,Urine Negative (Negative); Benzoylecgonine Screen, Ur Negative (Negative); Fentanyl Screen,Urine Negative (Negative); Opiate Screen,Urine Negative (Negative); THC Screen,Urine Negative (Negative)
--- NOTE | 2024-11-26 23:05 | PC.NURSE ---
MD Lange to call documenting RN on BP meds currently ordered and diet status
[2024-11-26] MEDS: NICARDIPINE/NS 20MG IVPB 20 MG/200 ML BAG 75 MG IV (23:25)
--- NOTE | 2024-11-26 23:34 | PC.NURSE ---
Called MD Romero again, he said to wait on giving PO BP med, MD will call back with update
--- NOTE | 2024-11-26 23:53 | PC.NURSE ---
Per Obad stop Nacardipine drip and hold PO BP meds for now
[2024-11-27] VITALS (27 sets, daily range): BP systolic 147–216; BP diastolic 77–103; PULSE 60–77; RESP 13–26; TEMP 36.1–37; O2SAT 89–99; BMI 35.0; BMI 34.9
--- NOTE | 2024-11-27 00:23 | ESHP_ITS ---
<Statement entered by Nisha Lambert MD - 11/27/24 05:32> 74-year-old female with multiple comorbidities including hypertension and obesity who came into the ER for evaluation status post MRI. Patient has been having difficulty finding words however denies any focal neurologic symptoms. In the ER, patient noted to have acute stroke in the posterior occipital and left parietal lobe and the MRI and telemetry neuro was consulted who stated the MRI finding is likely subacute. As a result, plan to admit the patient for stroke workup including obtaining echocardiogram, telemetry to evaluate for any arrhythmias that could be causing this patient's ischemic stroke. In addition, patient also noted to have significant hypertension with initial systolic blood pressure in the 230s for which nicardipine drip was started in the ER however we did discontinue nicardipine drip and plan to allow for slow decrease in blood pressure over the next 24 hours.I reviewed above note and agree with findings and plans. I have also personally examined the patient with medicine team and went over assessment and plan with medical team including continuous improvement intern and resident physician. Documentation for date of: 11/27/24 HPI History of Present Illness History of present illness: Annalise is a 74 y/o female with PMHx of obesity and newly diagnosed hypertension who comes in for an evaluation after having an MRI done today and was told to come to the ER. Patient reports that on October 22, 2024, she had her left knee replaced. About a month later, on November 19 she appeared to have an episode in which she had trouble finding words, make sentences and read a clock. She says she is never had the symptoms before and felt that she was off cognitively. She came to the ED and was worked up with head imaging and was told she had nothing and was clear for follow-up outpatient. She seen her primary care doctor the next day who had urged her to get an outpatient MRI scheduled. Today she went to get an MRI, and was told by the health information technician to go to the ED immediately after she had seen something on the MRI. She denies having previous stroke history, and says that she was recently diagnosed with high blood pressure about a week ago and her primary care office however does not remember what her blood pressure numbers were. She denies having any strokelike symptoms prior to this. She denies any recent travel, is not on any blood thinners. Denies any recent syncope, dizziness, weakness, confusion, or trauma. She also denies chest pain, shortness of breath, nausea, vomiting, however says she has a headache. She also says she was recently diagnosed with a UTI, has no history of UTIs and has been taking Keflex for it. Denies history of atrial fibrillation. She has never seen a inspector scales before. No other complaints at this time ED course: She came to the ED with a temperature of 98.7, heart rate 73, respiratory 18, saturating 97% room air, and 230 systolic blood pressure. She was worked up was found to have a white count of 7.7, hemoglobin of 12.4, sodium of 137, potassium 3.5, bicarb 29, BUN/creatinine 13 and 1.2 respectively, glucose 138, platelets 334, coag panel negative, troponin negative x 1. Teleneuro was consulted who gave NIHS score of 0. MRI was pending read, however shows acute infarcts both occipital posterior left parietal lobe, no abnormal enhancement right occipital lobe. However teleneuro had reviewed images which was read as subacute infarct. Patient was given Keppra 1 g, Decadron 10 mg, was put on nicardipine drip. Medicine was consulted and patient admitted to floors Past medical history: As above Surgical history: Hip operation 25 years ago, left knee and hip operation about a month ago Allergies: No known allergies Meds: Fosinopril 10 mg Family history: No family history of medical problems including diabetes mellitus, heart disease, stroke Social history: Born and raised in [place], has 1 daughter. No recent travel. Does not drink, no smoking history or drug use history. Makes all her meals. Lives with her . Review of Systems Review of Systems Narrative Review of Systems: Constitutional: No fever, chills, fatigue, weakness, weight loss HEENT: No eye pain, vision loss, ear pain, hearing loss, dysphagia, Cardiovascular: No chest pain, palpitations, edema, pain with walking Respiratory: No cough, shortness of breath, wheezing GI: No NVD, abdominal pain, constipation, blood in stool, loss of appetite, heartburn Extremities: No presence of pitting edema MSK: No back pain, joint pain, joint swelling Neuro: No dizziness, numbness, weakness, positive headaches, no seizures, tremors Psych: No anxiety, depression Exam Vital Signs Temp Pulse Resp BP Pulse Ox O2 Del Method 98.2 F 77 17 159/73 H 93 L Room Air 11/26/24 23:29 11/26/24 23:45 11/26/24 23:45 11/26/24 23:45 11/26/24 23:45 11/26/24 23:29 Narrative Exam General: AAOx3, NAD, obese female, pleasant HEENT: Moist mucous membranes, conjunctiva clear, EOMI, PERRLA, Cardiovascular: Pansystolic murmur, radial pulses +2 bilat, RRR Pulmonary: CTAB bilat no cough, no wheezing GI: No tenderness to light or deep palpitation, no guarding, rigidity, rebound tenderness or distension Extremities: No presence of trace or pitting edema in lower extremities bilaterally, dorsalis pedis pulses +2 bilaterally Neuro: AAOx3, no focal motor or sensory deficits in the UE or LE bilat Psych: Good judgement, thought and behavior. Cooperative Results: Labs 11/26/24 19:36 11/26/24 19:36 Labs: Short CBC 11/26/24 Range/Units 19:36 WBC 7.7 (3.6-11.0) Thou/mm3 Hgb 12.4 (12.0-16.0) g/dL Hct 36.2 (36.0-46.0) % Plt Count 334 (140-440) Thou/mm3 BMP 11/26/24 19:36 Sodium 137 Potassium 3.5 Chloride 102 Carbon Dioxide 29.0 BUN 13 Creatinine 1.2 Glucose 138 H Calcium 9.7 Cardiac Enzymes 11/26/24 Range/Units 19:36 Troponin I < 0.020 (0.0-0.045) ng/mL Liver Function 11/26/24 Range/Units 19:36 Total Bilirubin 0.4 (0.3-1.2) mg/dL AST 15 (0-34) U/L ALT 17 (10-49) U/L Alkaline Phosphatase 100 (46-116) U/L Albumin 4.2 (3.4-4.8) gm/dL Urine 11/26/24 Range/Units 22:19 Urine Color Colorless A (Lt Yel-Yel) Urine Clarity Clear (Clear/Hazy) Urine pH 7.0 (5.0-7.0) Ur Specific [place] 1.008 (1.001-1.035) Urine Protein Negative (Neg - Trace) Urine Glucose (UA) Negative (Negative) Quality Measures Quality Measures none Advance care planning discussed with:: patient Medications Home Medications and Allergies Allergies Allergy/AdvReac Type Severity Reaction Status Date / Time No Known Allergies Allergy Verified 11/20/24 14:35 Visit Medications Acetaminophen (Acetaminophen 325 Mg Tablet) 650 mg PO Q6H PRN PRN Reason: Fever >100 or pain 1-3 Stop: 12/27/24 00:02 Aspirin (Aspirin Ec 81 Mg Tabec) 81 mg PO QDAY [facility] Stop: 12/27/24 08:59 Atorvastatin Calcium (Atorvastatin Calcium 10 Mg Tablet) 40 mg PO HS [facility] Stop: 12/27/24 00:09 Cephalexin HCl (Cephalexin 250 Mg Capsule) 500 mg PO QID [facility] Stop: 12/04/24 00:14 Lisinopril (Lisinopril 20 Mg Tablet) 20 mg PO QDAY [facility] Stop: 12/26/24 22:44 Last Admin: 11/26/24 23:55 Dose: Not Given Ondansetron HCl (Ondansetron Inj 2 Mg/Ml Inj 2 Ml) 4 mg IV Q6H PRN; Protocol PRN Reason: NAUSEA OR VOMITING Stop: 12/27/24 00:02 Discontinued Medications Aspirin (Aspirin 325 Mg Tablet) 325 mg PO X1 ONE Stop: 11/27/24 00:08 Dexamethasone Sodium Phosphate (Dexamethasone Sod Phos Inj 10 Mg/Ml Vial) 10 mg IVP X1 ONE; Protocol Stop: 11/26/24 20:09 Last Admin: 11/26/24 20:20 Dose: 10 mg Nicardipine/Sodium Chloride (Cardene Ivpb) 20 mg in 200 mls @ 50 mls/hr IV .Q4H PRN; Protocol PRN Reason: PER PROTOCOL Stop: 12/26/24 20:07 Last Titration: 11/26/24 23:55 Dose: 0 mg/hr, 0 mls/hr Levetiracetam (Levetiracetam Inj 100 Mg/Ml Vial 5ml) 1,000 mg IVP X1 ONE Stop: 11/26/24 20:09 Last Admin: 11/26/24 20:20 Dose: 1,000 mg Lisinopril (Lisinopril 20 Mg Tablet) 40 mg PO QDAY [facility] Stop: 12/26/24 22:14 Last Admin: 11/26/24 22:57 Dose: Not Given Ondansetron HCl (Ondansetron Inj 2 Mg/Ml Inj 2 Ml) 4 mg IV Q4HR PRN PRN Reason: NAUSEA OR VOMITING Stop: 12/26/24 19:37 Assessment & Plan Plan Assessment Annalise is a 74 y/o female with PMHx of obesity and newly diagnosed hypertension who was admitted for acute versus subacute CVA. #CVA, acute versus subacute There was concern for patient having subacute stroke and interpretation by [facility] neurologist on MRI is subacute stroke MRI brain read shows read of being acute stroke in posterior occipital and left parietal lobe. Patient's symptoms appeared to have occurred last week, patient was admitted however had CT head on November 20 which was unremarkable and in-house neurologist did not recommend inpatient admission Patient with symptoms lined up well with subacute CVA as patient does not have symptoms at this time, however it does have a headache NIHSS score of 0 in ER At this point we will continue with permissive hypertension due to possible acuity of CVA Plan: ? Neurology consulted, appreciate recs ? Speech therapy ? Echo ? Neurochecks every 4 hours ? Head of bed elevation 30 degrees ? DVT prophylaxis ? Bedrest ? A1c, lipid profile, TSH for cardiac stratification ? Telemetry ? Carotid duplex ultrasound ? Will keep permissive hypertension at this time ? Continue with Lipitor 40 mg at bedtime ? Continue with ASA 81 mg after 325 mg loading dose #Hypertensive emergency, improving #History of hypertension Blood pressure of 230 systolic when came in, also had a headache Patient was on nicardipine drip in the ED, however weaned off Plan: ? Do not correct systolic blood pressure more than 25% within the first 24 hours ? Will continue to keep permissive hypertension #Health Maintenance Disposition: Telemetry DVT prophylaxis: Lovenox GI prophylaxis: None indicated at this time Diet: Cardiac CODE STATUS: Full Patient seen and care discussed with my attending physician, Dr. Petra Lange, PGY-1
[2024-11-27] MEDS: Aspirin 325 MG TABLET PO (00:40)
[2024-11-27] MEDS: ATORVASTATIN CALCIUM 10 MG TABLET 40 MG PO (00:41)
[2024-11-27] MEDS: cephALEXin 250 MG CAPSULE 500 MG PO ×5 (00:41→20:10)
--- NOTE | 2024-11-27 01:22 | XR_ITS ---
Examination: Carotid arterial duplex scan, ultrasound. Date and time of exam: November 27, 2024 0048 hrs. Indications: Onset dizziness altered mental status today Technique: Multiple sonographic images have been obtained of the carotid arteries and vertebral arteries, B-mode/grayscale imaging and Doppler spectral analysis and color flow Peak systolic and diastolic velocities have been recorded. Systolic diastolic ratios have been calculated. Findings: Right peak systolic velocities: Distal internal carotid artery peak systolic velocity is 0.3 M/sec Proximal internal carotid artery peak systolic velocity is 0.4 M/sec Carotid bifurcation peak systolic velocity is 0.5 M/sec External carotid artery peak systolic velocity is 1.2 M/sec Vertebral artery flow is antegrade. Left peak systolic velocities: Distal internal carotid artery peak systolic velocity is 0.5 M/sec Proximal internal carotid artery peak systolic velocity is 0.2 M/sec Carotid bifurcation peak systolic velocity is 0.7 M/sec External carotid artery peak systolic velocity is 1.0 M/sec Vertebral artery flow is not visualized Doppler waveform analysis demonstrates no spectral broadening Impression: Right internal carotid artery demonstrates 0 stenosis. Left internal carotid artery demonstrates 0-10% stenosis. No left vertebral artery flow noted, consider MR A neck MRA brain without contrast follow-up
--- NOTE | 2024-11-27 02:30 | PRELIM_ITS ---
Ultrasound carotid, bilateral with wave Doppler spectral analysis. November 27, 2024 0048 hours Clinical history: Stroke Comparison: None. Findings: Ashley scale, color flow and spectral Doppler evaluation of the carotid and vertebral arteries were performed bilaterally. Right: The common carotid, external/internal carotid and vertebral arteries demonstrate normal color flow and spectral profile. There are no focal stenotic plaques or vessel wall calcification. Normal antegrade flow is noted in the vertebral artery. Left: The common carotid, external/internal carotid and vertebral arteries demonstrate normal color flow and spectral profile. There are no focal stenotic plaques or vessel wall calcification. The left vertebral artery is not visualized. Doppler profile: Right Left ICA 0.4 cm/sec 0.5 cm/sec CCA 0.5 cm/sec 0.8 cm/sec ICA/CCA 0.8 0.7 Impression: No hemodynamically significant carotid artery stenosis bilaterally. Normal antegrade flow in the right vertebral artery. The left vertebral artery is not visualized, possibly occluded, correlation with CTA is recommended. Discussion Details: Results verbally communicated to : Dr Seay at 02:18 AM 11/27/2024 Report Electronically Signed By: Jonah Delcid 11/27/2024 2:29:42 AM [EST]
--- NOTE | 2024-11-27 03:44 | XR_ITS ---
Examinations: MRI Brain without intravenous contrast. MRA brain without intravenous contrast. MRA carotids without intravenous contrast 3-D vascular reconstructions Date and time of exam: November 27, 2024 1800 hrs. Comparison November 18, 2024 Indications:: History CVA Brain MRI yesterday, altered mental status Technique: Multiple axial and sagittal images of the brain have been obtained MRA brain carotid images without contrast obtained, including 3-D postprocessing, vascular maximum intensity projection images Findings: [place] is not enlarged. The optic chiasm and infundibular stalk are not remarkable. Prepontine and interpeduncular cisterns are not enlarged. No localized enlargement of the medulla or [place]. Fourth ventricle and cerebellar tonsils normal in position. Subacute hemorrhage is not seen. Fourth ventricle is midline. Mass in the cerebellopontine angle region is not evident. 7th and 8th nerve complexes exhibits symmetry. Globes are symmetrical with no retro-orbital mass. Increased white matter signal noted especially posterior cortex on the FLAIR images Diffusion-weighted images demonstrate foci restricted diffusion again noted in the occipital lobes and posterior left parietal lobe Mass-effect upon the ventricular system is not identified. MRA carotid images no significant stenoses. MRA brain images 90% stenosis left middle cerebral artery trifurcation vessel, 80% stenosis P1 segment left posterior cerebral artery Impression: Again noted acute/subacute infarcts occipital lobes left parietal lobe 90% stenosis left middle cerebral artery trifurcation vessel 80% stenosis P1 segment left posterior cerebral artery
--- NOTE | 2024-11-27 03:55 | PC.NURSE ---
Spoke to MD Hurt about BP perameters. to put order in
[2024-11-27 05:09] LABS: Basophils % (Auto) 0 % (0-2.5); Eosinophils % (Auto) 0 % (0-10); Hematocrit 38.6 % (36.0-46.0); Hemoglobin 13.2 g/dL (12.0-16.0); Immature Granulocytes % (Auto) 0 % (0-0); Immature Granulocytes Auto 0.02 Thou/mm3 (0.00-0.00); Lymphocytes # (Auto) 0.9 Thou/mm3 (1.0-4.8); Lymphocytes % (Auto) 11 % (10-50); Mean Corpuscular HGB Conc 34.2 g/dl (31.0-37.0); Mean Corpuscular Hemoglobin 29.3 pg (25.0-35.0); Mean Corpuscular Volume 86 fL (80-100); Monocytes # (Auto) 0.1 Thou/mm3 (0.0-0.8); Monocytes % (Auto) 1 % (0-12); Neutrophils # (Auto) 7.2 Thou/mm3 (1.8-7.7); Neutrophils % (Auto) 88 % (37-80); Nucleated Red Blood Cell % 0 /100 WBC (0); Platelet Count 307 Thou/mm3 (140-440); RDW Standard Deviation 39.1 fL (36.4-46.3); White Blood Count 8.2 Thou/mm3 (3.6-11.0)
[2024-11-27 05:26] LABS: Glucose Estimated Average 194 mg/dL (80-131); Hemoglobin A1C 8.4 % Hgb (4.8-6.0)
[2024-11-27 05:30] LABS: Alanine Aminotransferase 17 U/L (10-49); Albumin, Serum 4.3 gm/dL (3.4-4.8); Albumin/Globulin Ratio 1.3 (1.2-2.2); Alkaline Phosphatase 103 U/L (46-116); Anion Gap 9 (7-16); Aspartate Amino Transferase 15 U/L (0-34); BUN/Creatinine Ratio 12 Ratio (12-20); Bilirubin,Total 0.5 mg/dL (0.3-1.2); Blood Urea Nitrogen 13 mg/dL (9-23); Calcium 9.6 mg/dL (8.3-10.6); Calcium (Corrected) 9.6 mg/dL (8.5-10.1); Cardiac Risk Estimate 3.1 RATIO (3.7-5.6); Chloride 103 mMol/L (98-107); Cholesterol 183 mg/dL (132-200); Creatinine (Component) 1.1 mg/dL (0.6-1.3); Estimated Creatinine Clearance 54.7 mL/min (>60); Globulin 3.3 gm/dL (2.3-3.5); Glucose 330 mg/dL (74-106); HDL Cholesterol 60 mg/dL (40-60); LDL Cholesterol,Calculated 107 mg/dL (0-130); Magnesium 1.7 mg/dL (1.6-2.6); Osmolality,Calculated 286 (275-295); Phosphorous 2.9 mg/dL (2.4-5.1); Potassium 3.8 mMol/L (3.4-5.1); Sodium 137 mMol/L (136-145); Thyroid Stimulating Hormone 0.95 uIU/mL (0.55-4.78); Total Protein 7.6 gm/dL (5.7-8.2); Triglycerides 80 mg/dL (30-150); eGFR 53 See Note
--- NOTE | 2024-11-27 07:45 | PC.NURSE ---
NURSING DOCUMENTATION DONE AT 0718 DONE CHARTED BY ALINA WAGONER, NOT VIJAY WAGONER.
--- NOTE | 2024-11-27 09:03 | PC.NURSE ---
spoke with Dr. Gao to confirm not completing NIHSS scale, patient passed swallow screen okay to have diet
--- NOTE | 2024-11-27 09:03 | PC.NURSE ---
Consulting Engineer: Informed MD Gao that since patient received an MRI with contrast after 1800 last night (11/26), she cannot have another MRI until after 1800 tonight.
[2024-11-27] MEDS: ASPIRIN EC 81 MG TABEC PO (09:55)
[2024-11-27] MEDS: CLOPIDOGREL BISULFATE 75 MG TABLET PO (12:30)
--- NOTE | 2024-11-27 13:43 | PCS.ST ---
Swallow evaluation completed. No dysphagia. Very mild anomia, no aphasia. Recommended to continue on regular consistency diet. Evaluation only.
--- NOTE | 2024-11-27 13:48 | PC.PT ---
PT eval only. Patient is I with transfers and ambulation with walker.
--- NOTE | 2024-11-27 15:49 | ESPR_ITS ---
Documentation for date of: 11/27/24 Subjective Subjective Interval history: Patient was seen and examined by the bedside. No acute overnight events. Patient reports feeling better, reported that approximately a week ago she started to have problems with expressive speech, it was hard to find the words and experience problems reading clock time and text on the phone. She also reported that her found him walking in a circles at home and brought her to the ED, they did a CT scan which was negative and she was discharged home. Today she denies any problem with weakness, reports that her speech has improved, denies weakness, problems with vision. MR angiography is pending, per radiology patient need to have at least 24 hours after the previous contrast injections before doing the new scan. A1c levels is 8.8. Exam Vital Signs Temp Pulse Resp BP Pulse Ox O2 Del Method 97.3 F 76 15 153/95 H 98 Room Air 11/27/24 12:00 11/27/24 12:00 11/27/24 12:00 11/27/24 12:00 11/27/24 12:11/27/24 12:00 Narrative Exam Physical Exam General: Awake and in no acute distress. Conversational and non-toxic appearing. Speech appears slightly slow. HEENT: Normocephalic, atraumatic, mucous membranes moist. Heart: Regular rate and rhythm, no murmurs. Lungs: Clear to auscultation with no wheezing or crackles. Abdomen: Soft, nondistended, nontender, positive bowel sounds. ?No guarding or rebound tenderness. Neurologic: Alert and oriented x3, no gross neurological deficit, and patient able to move all 4 extremities. Extremities: No edema. Skin: No rash or ecchymoses. Objective Labs 11/28/24 05:16 11/28/24 05:16 Labs: Laboratory Results - last 24 hr 11/26/24 11/26/24 11/27/24 19:36 22:19 04:54 WBC 7.7 8.2 RBC 4.19 4.50 Hgb 12.4 13.2 Hct 36.2 38.6 MCV 86 86 MCH 29.6 29.3 MCHC 34.3 34.2 RDW Std Deviation 39.7 39.1 Plt Count 334 307 Neut % (Auto) 52 88 H Lymph % (Auto) 33 11 [place] % (Auto) 10 1 Eos % (Auto) 4 0 Baso % (Auto) 1 0 Neut # (Auto) 4.0 7.2 Lymph # (Auto) 2.5 0.9 L [place] # (Auto) 0.8 0.1 Eos # (Auto) 0.3 0.0 Baso # (Auto) 0.0 0.0 Immature Gran # (Auto) 0.03 H 0.02 H Absolute Nucleated RBC 0.00 0.00 Immature Gran % 0 0 Nucleated RBC % 0 0 PT 11.2 INR 1.0 APTT 27.2 Sodium 137 137 Potassium 3.5 3.8 Chloride 102 103 Carbon Dioxide 29.0 25.0 Anion Gap 6 L 9 BUN 13 13 Creatinine 1.2 1.1 Estim Creat Clear Calc 50.1 L 54.7 L eGFR 48 L 53 L BUN/Creatinine Ratio 11 L 12 Glucose [address] Glu mg/dL 194 H Hemoglobin A1c 8.4 H Calculated Osmolality 275 286 Calcium 9.7 9.6 Corrected Calcium 9.7 9.6 Phosphorus 2.9 Magnesium 1.8 1.7 Total Bilirubin 0.4 0.5 AST 15 15 ALT 17 17 Alkaline Phosphatase 100 103 Troponin I < 0.020 B-Natriuretic Peptide 84 Total Protein 7.4 7.6 Albumin 4.2 4.3 Globulin 3.2 3.3 Albumin/Globulin Ratio 1.3 1.3 Triglycerides 80 Cholesterol 183 LDL Cholesterol, Calc 107 HDL Cholesterol 60 Cholesterol/HDL Ratio 3.1 L TSH 0.95 Beta HCG, Quant 9 Ur Collection Type Voided Urine Color Colorless A Urine Clarity Clear Urine pH 7.0 Ur Specific [place] 1.008 Urine Protein Negative Urine Glucose (UA) Negative Urine Ketones Negative Urine Blood Negative Urine Nitrite Negative Urine Bilirubin Negative Urine Urobilinogen (Auto) Negative Ur Leukocyte Esterase Negative Urine RBC 1 Urine WBC 1 Ur Squamous Epith Cells 1 Urine Bacteria None Urine Opiates Screen Negative Urine Fentanyl Screen Negative Ur Barbiturates Screen Negative U Amphetamin/Meth Scrn Negative U Benzodiazepines Scrn Negative U Cocaine Metab Screen Negative U Marijuana (THC) Screen Negative HCG (Qual) Positive Quality Measures Quality Measures VTE prophylaxis Advance care planning discussed with:: other Assessment & Plan Assessment Current Active Medications: Generic Name Dose Route Start Last Admin Trade Name Freq PRN Reason Stop Dose Admin Acetaminophen 650 mg 11/27/24 00:03 Acetaminophen 325 Mg Tablet PO 12/27/24 00:02 Q6H PRN Fever >100 or pain 1-3 Aspirin 81 mg 11/27/24 09:00 11/27/24 09:55 Aspirin Ec 81 Mg Tabec PO 12/27/24 08:59 81 mg QDAY STAR Administration Atorvastatin Calcium 40 mg 11/27/24 00:10 11/27/24 00:41 Atorvastatin Calcium 10 Mg Tablet PO 12/27/24 00:09 40 mg HS STAR Administration Cephalexin HCl 500 mg 11/27/24 00:15 11/27/24 12:29 Cephalexin 250 Mg Capsule PO 12/04/24 00:14 500 mg QID STAR Administration Clopidogrel Bisulfate 75 mg 11/27/24 11:45 11/27/24 12:30 Clopidogrel Bisulfate 75 Mg Tablet PO 12/27/24 11:44 75 mg QDAY STAR Administration Dextrose 25 ml 11/27/24 11:32 Dextrose 50%-Water Inj 50 Ml Syringe IV 12/27/24 11:31 Q15MIN PRN BG 50-70 responsive npo pt Dextrose 50 ml 11/27/24 11:32 Dextrose 50%-Water Inj 50 Ml Syringe IV 12/27/24 11:31 Q15MIN PRN BG <50 OR BG <70 & pt unresponsive Glucagon 1 mg 11/27/24 11:32 Glucagon Inj 1 Mg Vial IM Q15MIN PRN BG <70, and no IV access Insulin Human Lispro 0 unit 11/27/24 17:00 Insulin Lispro (Admelog) 1 Unit/0.01 Ml Unit SC 12/27/24 16:59 AC [facility] Protocol Labetalol HCl 10 mg 11/27/24 04:13 Labetalol Inj 5 Mg/Ml Vial 20 Ml IVP 12/27/24 03:56 Q2H PRN sbp >180, Hold if HR <60 Lisinopril 20 mg 11/26/24 22:45 11/26/24 23:55 Lisinopril 20 Mg Tablet PO 12/26/24 22:44 Not Given QDAY STAR Ondansetron HCl 4 mg 11/27/24 00:03 Ondansetron Inj 2 Mg/Ml Inj 2 Ml IV 12/27/24 00:02 Q6H PRN NAUSEA OR VOMITING Protocol Plan The patient is a 74 y/o female with previous medical history of obesity and hypertension. #CVA, acute versus subacute #Ischemic stroke There was concern for patient having subacute stroke and interpretation by [facility] neurologist on MRI is subacute stroke MRI brain read shows read of being acute stroke in posterior occipital and left parietal lobe. Patient's symptoms appeared to have occurred last week, patient was admitted however had CT head on November 20 which was unremarkable and in-house neurologist did not recommend inpatient admission Patient with symptoms lined up well with subacute CVA as patient does not have symptoms at this time, however it does have a headache NIHSS score of 0 in ER At this point we will continue with permissive hypertension due to possible acuity of CVA 11/27: NIHSS score 0. A1C is 8.8%. TSH is normal. ASCVD: Risk of cardiovascular event (coronary or stroke or non-fatal HI or stroke) in next 10 years. High intensity statins recommended. Speech eval normal. Carotid duplex ultrasound along the peripheral no no significant carotid stenosis. Plan: ? Neurology consulted, appreciate recs ? Echo ? Neurochecks every 4 hours ? Head of bed elevation 30 degrees ? DVT prophylaxis ? Telemetry ? Atorvastatin 80 mg at bedtime ? Continue with ASA 81 mg - Plavix 75 mg daily #Hypertensive emergency, improving #History of hypertension Blood pressure of 230 systolic when came in, also had a headache Patient was on nicardipine drip in the ED, however weaned off Plan: ? Lisinopril 20 mg daily #Type 2 DM A1c 8.8% Plan: - SSI with Accuchecks #UTI Patient recently was dignosed with UTI and was started on Keflex Plan: - continue with Keflex #Health Maintenance Disposition: Telemetry DVT prophylaxis: Lovenox GI prophylaxis: None indicated at this time Diet: Cardiac CODE STATUS: Full code Plan of care discussed with attending Dr. Rios, PGY-[address] Gao and PGY-[address] Medrano. Saranya Diallo MD, PGY 1. --- ATTESTATION: I saw and examined the patient this morning, and I agree with current management stated by the resident. Will continue to monitor patient during their stay. 74 y/o female with previous medical history of obesity and hypertension. who initially presented on 11/27/24 due to stroke like symptoms that occured outpatient about a week ago and was being worked up by PCP. Initial CT was negative on November 20 and repeat one on this admission revealed subacute CVA. MRI Again noted acute/subacute infarcts occipital lobes left parietal lobe, 90% stenosis left middle cerebral artery trifurcation vessel, 80% stenosis P1 segment left posterior cerebral artery. Pending in house Neuro recommendations at this time. Disclaimer: Despite multiple revisions, due to the dictation software being used, the document bellow may not be free of grammatical errors including phonetic/typographic errors. However, this does not deter from our commitment to providing health care in the patient's best interest in mind. Dr. Milton Medrano, PGY-3 Attending Provider Attestation/Addendum I reviewed labs, imaging, EKG, home medications and prior available records. Face to face evaluation was performed by me. I have personally examined the patient and discussed assessment and plan with the IM team. I reviewed the resident note and agree with the plan with exceptions as below. I reviewed labs, imaging, EKG, home medications and prior available records. Face to face evaluation was performed by me. I have personally examined the patient and discussed assessment and plan with the IM team. I reviewed the resident note and agree with the plan with exceptions as below. Expressive aphasia Acute CVA, occipital New onset diabetes mellitus Patient's symptoms improved MRI showed ischemic changes in the bilateral frontal and left parietal areas. A1c is 8.4. Likely type 2 diabetes mellitus. She declined subcutaneous insulin but okay with oral medications Follow-up brain MRA Consulted neurology Continue aspirin, Plavix, and atorvastatin
[2024-11-27] MEDS: Lisinopril 20 MG TABLET PO (16:34)
[2024-11-27] MEDS: hydrALAZINE INJ 20 MG/ML VIAL 10 MG IV (17:38)
--- NOTE | 2024-11-27 17:39 | PC.NURSE ---
Dr. Lainez notified of patients BP at 207/85 and HR from 60-63, order received for hydralazine and confirmed with Dr. Lainez, PRN labetolol not given
[2024-11-27] MEDS: ATORVASTATIN CALCIUM 20 MG TABLET 80 MG PO (20:11)
[2024-11-27] MEDS: LABETALOL INJ 5 MG/ML VIAL 20 ML 10 MG IVP (21:57)
--- NOTE | 2024-11-27 22:00 | PC.NURSE ---
PT TRANSFERRED FROM ROOM 251 TO 279. AWAKE AND ORIENTEDX3, TRANSFERRED TO BED WITH SUPERVISION. J2EE JAVA DEVELOPER PLACED. CALL LIGHT WITHIN REACH. EDUCATED PT REGARDING IMPORTANCE OF CHECKING BLOOD SUGARS BEFORE MEALS AND AT NIGHT PREVIOUS EPISODES OF HYPERGLYCEMIA. WILL NEED TO MANAGE FSBS AT HOME. DAUGHTER AT BEDSIDE WELL. PT STATES THAT SHE WILL MAYBE START TOMORROW .
--- NOTE | 2024-11-27 23:21 | ESPR_ITS ---
Documentation for date of: 11/27/24 Subjective Subjective Interval history: Patient was seen in ICU today with her sister at the bedside. Her language and cognitive function are all gradually improving since the onset on 20 of November. She denies any headache, dizziness blurred vision double vision, weakness or paresthesias in the extremities or face. She is able to ambulate without any falls. Exam - Neurology Vital Signs Temp Pulse Resp BP Pulse Ox O2 Del Method 98.6 F 63 20 165/84 H 99 Room Air 11/27/24 20:00 11/27/24 21:57 11/27/24 20:00 11/27/24 23:07 11/27/24 20:00 11/27/24 20:00 Narrative Exam GENERAL APPEARANCE: Well hydrated, well-nourished in no acute distress. HEENT: Normocephalic, atraumatic, extraocular movements intact. Pupils: Equal reacting to light and accommodation NECK: Supple, no JVD or bruits. CARDIOVASULAR: Heart: S1, S2 heard, regular without S3-S4 or murmur no rubs or gallops. LUNGS/CHEST: Clear to auscultation bilaterally. No rails, rhonchi, or wheezing. Normal inspection. ABDOMEN: Soft, nontender, with normal bowel sounds. No pulsatile masses. No rebound, rigidity, or guarding. Normal inspection and palpation. EXTREMITIES: Normal inspection and palpation. No edema, clubbing or cyanosis. SKIN: Warm and dry without rashes. Normal inspection. MUSCULOSKELETAL: No cervical, thoracic, lumbar or midline bony tenderness. Normal inspection. NEURO: Alert, awake and oriented x3. Cranial nerves: II through XII grossly intact with questionable bilateral peripheral visual field defect. speech and language: Normal with no dysarthria or dysphasia. Motor system: Tone and bulk: Normal: Strength: 5 out of 5 in all 4 extremities; No pronator drift noted. Deep tendon reflexes: 2+ bilaterally symmetrical. Plantar reflex: Downgoing bilaterally. Sensory system: Intact to all modalities of sensation bilaterally. Coordination: Intact to [id number] and [id number] test bilaterally. No ataxia, no dysmetria, or dysdiadochokinesia noted. No intention tremors noted. Gait: Normal. Toe, heel, tandem walk all are normal. Romberg: Negative. No signs of meningeal irritation noted. PSYCHIATRIC: Normal mood and affect. Objective Labs 11/28/24 05:16 11/27/24 04:54 Labs: Laboratory Results - last 24 hr 11/27/24 04:54 WBC 8.2 RBC 4.50 Hgb 13.2 Hct 38.6 MCV 86 MCH 29.3 MCHC 34.2 RDW Std Deviation 39.1 Plt Count 307 Neut % (Auto) 88 H Lymph % (Auto) 11 [place] % (Auto) 1 Eos % (Auto) 0 Baso % (Auto) 0 Neut # (Auto) 7.2 Lymph # (Auto) 0.9 L [place] # (Auto) 0.1 Eos # (Auto) 0.0 Baso # (Auto) 0.0 Immature Gran # (Auto) 0.02 H Absolute Nucleated RBC 0.00 Immature Gran % 0 Nucleated RBC % 0 Sodium 137 Potassium 3.8 Chloride 103 Carbon Dioxide 25.0 Anion Gap 9 BUN 13 Creatinine 1.1 Estim Creat Clear Calc 54.7 L eGFR 53 L BUN/Creatinine Ratio 12 [address]ucose [address] Glu mg/dL 194 H Hemoglobin A1c 8.4 H Calculated Osmolality 286 Calcium 9.6 Corrected Calcium 9.6 Phosphorus 2.9 Magnesium 1.7 Total Bilirubin 0.5 AST 15 ALT 17 Alkaline Phosphatase 103 Total Protein 7.6 Albumin 4.3 Globulin 3.3 Albumin/Globulin Ratio 1.3 Triglycerides 80 Cholesterol 183 LDL Cholesterol, Calc 107 HDL Cholesterol 60 Cholesterol/HDL Ratio 3.1 L TSH 0.95 Assessment & Plan Assessment and plan (1) Acute CVA (cerebrovascular accident): Status: Acute Assessment and plan: With improving cognition and language function since the onset: November. No significant focal neurological deficit other than loss of peripheral vision bilaterally MRI brain showed bilateral acute infarction in both occipital areas and left parietal area, microbleed/calcification in multiple areas. Carotid Doppler: Showed no significant stenosis or plaque accumulation Follow-up with transesophageal echocardiogram. Continue with aspirin, Plavix and statin with better blood pressure and diabetes control. (2) Hypertension: Status: Acute Assessment and plan: Agreed with stepdown to telemetry as her blood pressure has been fairly controlled on oral medications, does not need to be on IV infusion. Continue with aggressive blood pressure management to keep the blood pressure under 140 mmHg systolic (3) Type 2 diabetes mellitus: Status: Acute Assessment and plan: No history of diabetes that she knows of. A1c: 8.4 Needs diabetes education for better control with the diet and exercise to have the A1c under 7 in addition to medication.
[2024-11-28] VITALS (21 sets, daily range): BP systolic 149–208; BP diastolic 70–151; PULSE 54–88; RESP 11–24; TEMP 36.1–36.4; O2SAT 91–100; BMI 33.5
--- NOTE | 2024-11-28 00:08 | ECHO_ITS ---
Transthoracic Echo Report Ht (in): 66 Wt (lb): 214 Exam Location: [facility] Status: Inpatient [employer] Farm Manager: CHITO Ojeda^^^^ Indications: Procedure Performed: BP: 171 / 69 HR: 86 Rhythm: Sinus Technical Quality: Good MEASUREMENTS (Male / Female) Normal Values 2D ECHO Aortic Root Diameter 3.1 cm DOPPLER AV Peak Velocity 150.0 cm/s AV Peak Gradient 9.0 mmHg AV Mean Gradient 5.0 mmHg AV Velocity Time Integral 31.8 cm FINDINGS Left Ventricle Normal left ventricular size, wall thickness, systolic function with no obvious regional wall motion abnormalities. Normal left ventricular diastolic filling pattern for age. The ejection fraction is visually estimated at 60-65 %. Right Ventricle The right ventricle is normal in size and systolic function. Left Atrium The left atrium is normal by two-dimensional, color flow and Doppler imaging with no structural abnormalities, no thrombus formation present. Right Atrium The right atrium is normal by two-dimensional imaging, color flow and Doppler imaging with no structural abnormalities, no thrombus formation present. Atrial Septum The interatrial septum is normal to color flow Doppler and agitated saline imaging. Aorta The aorta is normal by two-dimensional, color flow and Doppler interrogation. Mitral Valve Trace to mild mitral regurgitation. Aortic Valve The aortic valve is trileaflet and normal by two-dimensional, color flow and Doppler interrogation. There is no significant aortic valve regurgitation. Tricuspid Valve There is mild tricuspid valve regurgitation. Pulmonic Valve The pulmonic valve is normal by two-dimensional, color flow and Doppler interrogation. There is no significant pulmonic valve regurgitation. Vessels The pulmonary artery appears normal. The inferior vena cava pulmonary and hepatic veins appear normal. Pericardium The pericardium is normal by two-dimensional imaging. There is no significant pericardial effusion. CONCLUSIONS Indication: Stroke No evidence of any LA or NITO thrombus. No PFO or ASD. Bubble study negative. Normal LV size and function. Normal RV size and function. Trace MR and trace to mild TR. Mild atherosclerotic plaque noted in the descending aorta and aortic arch. Tre Bryan (Electronically Signed) Final Date: 28 November 2024 21:50
[2024-11-28 05:34] LABS: Basophils % (Auto) 0 % (0-2.5); Eosinophils % (Auto) 0 % (0-10); Hematocrit 34.1 % (36.0-46.0); Hemoglobin 11.8 g/dL (12.0-16.0); Immature Granulocytes % (Auto) 1 % (0-0); Immature Granulocytes Auto 0.09 Thou/mm3 (0.00-0.00); Lymphocytes # (Auto) 1.6 Thou/mm3 (1.0-4.8); Lymphocytes % (Auto) 12 % (10-50); Mean Corpuscular HGB Conc 34.6 g/dl (31.0-37.0); Mean Corpuscular Hemoglobin 29.6 pg (25.0-35.0); Mean Corpuscular Volume 86 fL (80-100); Monocytes # (Auto) 0.8 Thou/mm3 (0.0-0.8); Monocytes % (Auto) 6 % (0-12); Neutrophils # (Auto) 11.1 Thou/mm3 (1.8-7.7); Neutrophils % (Auto) 82 % (37-80); Nucleated Red Blood Cell % 0 /100 WBC (0); Platelet Count 325 Thou/mm3 (140-440); RDW Standard Deviation 39.2 fL (36.4-46.3); Red Blood Count 3.98 Miln/mm3 (4.00-5.20); White Blood Count 13.6 Thou/mm3 (3.6-11.0)
[2024-11-28] MEDS: cephALEXin 250 MG CAPSULE 500 MG PO ×3 (06:01→21:33)
[2024-11-28 06:28] LABS: Prothrombin Time 11.2 Seconds (9.0-12.2)
[2024-11-28 06:42] LABS: Alanine Aminotransferase 14 U/L (10-49); Albumin, Serum 3.8 gm/dL (3.4-4.8); Albumin/Globulin Ratio 1.4 (1.2-2.2); Alkaline Phosphatase 82 U/L (46-116); Anion Gap 11 (7-16); Aspartate Amino Transferase 17 U/L (0-34); BUN/Creatinine Ratio 20 Ratio (12-20); Bilirubin,Total 0.4 mg/dL (0.3-1.2); Blood Urea Nitrogen 22 mg/dL (9-23); Calcium 9.2 mg/dL (8.3-10.6); Calcium (Corrected) 9.4 mg/dL (8.5-10.1); Carbon Dioxide 23.9 mMol/L (20.0-31.0); Chloride 101 mMol/L (98-107); Creatinine (Component) 1.1 mg/dL (0.6-1.3); Estimated Creatinine Clearance 53.6 mL/min (>60); Globulin 2.8 gm/dL (2.3-3.5); Glucose 284 mg/dL (74-106); Osmolality,Calculated 285 (275-295); Potassium 4.2 mMol/L (3.4-5.1); Sodium 136 mMol/L (136-145); Total Protein 6.6 gm/dL (5.7-8.2); eGFR 53 See Note
[2024-11-28] MEDS: hydrALAZINE INJ 20 MG/ML VIAL 10 MG IV ×2 (08:28→14:38)
[2024-11-28] MEDS: CLOPIDOGREL BISULFATE 75 MG TABLET PO (08:30)
[2024-11-28] MEDS: amLODIPine BESYLATE 5 MG TABLET 10 MG PO (08:30)
[2024-11-28] MEDS: ASPIRIN EC 81 MG TABEC PO (08:31)
[2024-11-28] MEDS: Lisinopril 20 MG TABLET PO (08:31)
--- NOTE | 2024-11-28 09:34 | PD.RESCONSUL ---
HPI Data of Consult Patient: new to practice Consult date: 11/28/24 Requesting Physician: Elliott Rios MD Admitting Provider: Nisha Lambert MD Attending Provider: Elliott Rios MD Primary Care Provider: Iona Espitia PA-C Consult Narrative Reason for consult: Transesophageal echocardiogram History of present illness: Ms. Rojas is a 74-year-old female with past medical history of newly diagnosed hypertension and obesity who presented to [facility] on 11/28/2024 post MRI brain study and was informed by radiology personnel to go to the ER. Patient had an event of transient aphasia 1 week ago, reports to have an episode in which she had trouble finding words, make sentences and read a clock. Patient reports that the event resolved spontaneously and she subsequently underwent a CT scan of the head which was negative and an outpatient MRI brain was ordered for further assessment. The patient underwent the MRI brain study on an outpatient basis on 11/26/2024 following the completion of the study the radiology personnel, possibly a ? Theatre Arts Professor informed the patient that the MRI findings were abnormal and advised her to seek immediate evaluation in the emergency department. However the patient states that the personnel refused to provide any specific details regarding the nature of the abnormality. Upon presentation in the emergency department, patient denied any current symptoms. Focused neurological exam in ED by teleneurology showed NIHSS of 0, patient was not in any acute distress. She also denies any history of malignancy or significant medical condition. Patient denies any chest pain, shortness of breath, orthopnea, syncope, dizziness, weakness, confusion, nausea, vomiting, bilateral lower extremity edema and PND ED Course: ED Vitals: On presentation in ED blood pressure 232/126, heart rate 70, respiratory rate 17, temp 98.8, O2 sat 95 on room air ED Labs: Emergency department labs were significant for WBC 7.7, hemoglobin 12.4, platelet 334, sodium 137, potassium 3.5, chloride 102, venous CO2 29, BUN 13, creatinine 1.2, GFR 48, glucose 138, osmolality 275, corrected calcium 9.7, magnesium 1.8, total bilirubin 0.4, AST 15, ALT 17, alk phos 100, troponin less than 0.20, total protein 7.4, albumin 4.2 ED Imaging:MRI brain shows acute infarcts in both occipital lobes posterior left parietal lobe. EKG in ED showed sinus rhythm with frequent PVCs, QTc 451 ED Treatment:In ED teleneuro was consulted reviewed images, patient was given Keppra 1 g, Decadron 10 mg and was put on nicardipine drip in ED, eventually medicine was consulted and patient was admitted to floors. Patient was admitted to hospital for CVA, acute versus subacute, ischemic stroke patient's hemoglobin A1c was 8.8, TSH normal, had high ASCVD score, carotid duplex ultrasound was obtained showed no significant carotid stenosis. In-house neurology assessed the patient, patient currently on aspirin Plavix and high intensity statin. There was concern of embolic stroke hence cardiology was consulted for transesophageal echocardiogram. cc:: cc: Elliott Rios MD Review of Systems Review of Systems Narrative Review of Systems: ROS: -CONSTITUTIONAL: Denies weight loss, fever and chills. -HEENT: Denies changes in vision and hearing. -RESPIRATORY: Denies SOB and cough. -CV: Denies palpitations and Chest Pain. -GI: Denies abdominal pain, nausea, vomiting,constipation and diarrhea. -: Denies dysuria and urinary frequency. -MSK: Denies myalgia and joint pain. -SKIN: Denies rash and pruritus. -NEUROLOGICAL: Denies headache and syncope. -PSYCHIATRIC: Denies recent changes in mood. Denies anxiety and depression. Past Medical History Past Medical History Comments PMH COMMENT: PMH: Positive for hypertension PSHx: Hip surgery 25 years ago, left knee and hip surgery about a month ago Allergies: No known drug and food allergies Social history: -Smoking: Denies -Alcohol Use: Denies -Illicit Drug Use: Denies -Martial Status: lives with Family History: No significant family history, no history of heart disease. Exam Vital Signs Temp Pulse Resp BP Pulse Ox O2 Del Method 97.1 F 58 L 12 205/79 H 98 Room Air 11/28/24 08:00 11/28/24 09:03 11/28/24 08:00 11/28/24 09:03 11/28/24 08:00 11/28/24 08:00 Narrative Exam Physical Exam General: Awake and in no acute distress. Conversational and non-toxic appearing. HEENT: Normocephalic, atraumatic, mucous membranes moist. Heart: Regular rate and rhythm, no murmurs. Lungs: Clear to auscultation with no wheezing or crackles. Abdomen: Soft, nondistended, nontender, positive bowel sounds. ?No guarding or rebound tenderness. Neurologic: Alert and oriented x3, no gross neurological deficit, and patient able to move all 4 extremities. Extremities: No edema. Skin: No rash or ecchymoses. Results Labs 11/29/24 05:00 11/29/24 05:00 Labs: Short CBC 11/28/24 Range/Units 05:16 WBC 13.6 H D (3.6-11.0) Thou/mm3 Hgb 11.8 L (12.0-16.0) g/dL Hct 34.1 L (36.0-46.0) % Plt Count 325 (140-440) Thou/mm3 BMP 11/28/24 05:16 Sodium 136 Potassium 4.2 Chloride 101 Carbon Dioxide 23.9 BUN 22 Creatinine 1.1 Glucose 284 H Calcium 9.2 Liver Function 11/28/24 Range/Units 05:16 Total Bilirubin 0.4 (0.3-1.2) mg/dL AST 17 (0-34) U/L ALT 14 (10-49) U/L Alkaline Phosphatase 82 D (46-116) U/L Albumin 3.8 D (3.4-4.8) gm/dL Quality Measures Quality Measures VTE prophylaxis Advance care planning discussed with:: patient Medications Home Medications and Allergies Allergies Allergy/AdvReac Type Severity Reaction Status Date / Time No Known Allergies Allergy Verified 11/20/24 14:35 Visit Medications Acetaminophen (Acetaminophen 325 Mg Tablet) 650 mg PO Q6H PRN PRN Reason: Fever >100 or pain 1-3 Stop: 12/27/24 00:02 Amlodipine Besylate (Amlodipine Besylate 5 Mg Tablet) 10 mg PO QDAY STAR Stop: 12/28/24 08:19 Last Admin: 11/28/24 09:03 Dose: Not Given Aspirin (Aspirin Ec 81 Mg Tabec) 81 mg PO QDAY STAR Stop: 12/27/24 08:59 Last Admin: 11/28/24 08:31 Dose: 81 mg Atorvastatin Calcium (Atorvastatin Calcium 20 Mg Tablet) 80 mg PO HS STAR Stop: 12/27/24 20:59 Last Admin: 11/27/24 20:11 Dose: 80 mg Cephalexin HCl (Cephalexin 250 Mg Capsule) 500 mg PO QID [facility] Stop: 12/04/24 00:14 Last Admin: 11/28/24 06:01 Dose: 500 mg Clopidogrel Bisulfate (Clopidogrel Bisulfate 75 Mg Tablet) 75 mg PO QDAY [facility] Stop: 12/27/24 11:44 Last Admin: 11/28/24 08:30 Dose: 75 mg Dextrose (Dextrose 50%-Water Inj 50 Ml Syringe) 25 ml IV Q15MIN PRN PRN Reason: BG 50-70 responsive npo pt Stop: 12/27/24 11:31 Dextrose (Dextrose 50%-Water Inj 50 Ml Syringe) 50 ml IV Q15MIN PRN PRN Reason: BG <50 OR BG <70 & pt unresponsive Stop: 12/27/24 11:31 Glucagon (Glucagon Inj 1 Mg Vial) 1 mg IM Q15MIN PRN PRN Reason: BG <70, and no IV access Labetalol HCl (Labetalol Inj 5 Mg/Ml Vial 20 Ml) 10 mg IVP Q2H PRN PRN Reason: sbp >180, Hold if HR <60 Stop: 12/27/24 03:56 Last Admin: 11/27/24 21:57 Dose: 10 mg Lisinopril (Lisinopril 20 Mg Tablet) 20 mg PO QDAY [facility] Stop: 12/27/24 16:29 Last Admin: 11/28/24 08:31 Dose: 20 mg Ondansetron HCl (Ondansetron Inj 2 Mg/Ml Inj 2 Ml) 4 mg IV Q6H PRN; Protocol PRN Reason: NAUSEA OR VOMITING Stop: 12/27/24 00:02 Discontinued Medications Aspirin (Aspirin 325 Mg Tablet) 325 mg PO X1 ONE Stop: 11/27/24 00:08 Last Admin: 11/27/24 00:40 Dose: 325 mg Atorvastatin Calcium (Atorvastatin Calcium 10 Mg Tablet) 40 mg PO [facility] Stop: 12/27/24 00:09 Last Admin: 11/27/24 00:41 Dose: 40 mg Dexamethasone Sodium Phosphate (Dexamethasone Sod Phos Inj 10 Mg/Ml Vial) 10 mg IVP X1 ONE; Protocol Stop: 11/26/24 20:09 Last Admin: 11/26/24 20:20 Dose: 10 mg Hydralazine HCl (Hydralazine Inj 20 Mg/Ml Vial) 10 mg IV X1 ONE Stop: 11/27/24 17:28 Last Admin: 11/27/24 17:38 Dose: 10 mg Hydralazine HCl (Hydralazine Inj 20 Mg/Ml Vial) 10 mg IV X1 ONE Stop: 11/28/24 08:18 Last Admin: 11/28/24 08:28 Dose: 10 mg Nicardipine/Sodium Chloride (Cardene Ivpb) 20 mg in 200 mls @ 50 mls/hr IV .Q4H PRN; Protocol PRN Reason: PER PROTOCOL Stop: 12/26/24 20:07 Last Titration: 11/26/24 23:55 Dose: 0 mg/hr, 0 mls/hr Insulin Human Lispro (Insulin Lispro (Admelog) 1 Unit/0.01 Ml Unit) 0 unit SC AC STAR; Protocol Stop: 12/27/24 16:59 Last Admin: 11/28/24 08:31 Dose: Not Given Labetalol HCl (Labetalol Inj 5 Mg/Ml Vial 20 Ml) 10 mg IVP Q2H PRN PRN Reason: sbp 180mmHg, Hold if HR <60 Stop: 12/27/24 03:56 Levetiracetam (Levetiracetam Inj 100 Mg/Ml Vial 5ml) 1,000 mg IVP X1 ONE Stop: 11/26/24 20:09 Last Admin: 11/26/24 20:20 Dose: 1,000 mg Lisinopril (Lisinopril 20 Mg Tablet) 40 mg PO QDAY [facility] Stop: 12/26/24 22:14 Last Admin: 11/26/24 22:57 Dose: Not Given Lisinopril (Lisinopril 20 Mg Tablet) 20 mg PO QDAY [facility] Stop: 12/26/24 22:44 Last Admin: 11/26/24 23:55 Dose: Not Given Ondansetron HCl (Ondansetron Inj 2 Mg/Ml Inj 2 Ml) 4 mg IV Q4HR PRN PRN Reason: NAUSEA OR VOMITING Stop: 12/26/24 19:37 Assessment & Plan Plan Assessment and plan: Summary: Ms. Rojas is a 74-year-old female with past medical history of hypertension and obesity who presented to [facility] on 11/28/2024 post MRI brain study and was informed by radiology personnel to go to the ER. Patient had an event of transient aphasia 1 week ago, reports to have an episode in which she had trouble finding words, make sentences and read a clock. In-house MRI was positive for acute infarcts in both occipital lobes posterior left parietal lobe. Patient was admitted to hospital for CVA, acute versus subacute, ischemic stroke patient's hemoglobin A1c was 8.8, TSH normal, had high ASCVD score, carotid duplex ultrasound was obtained showed no significant carotid stenosis. In-house neurology assessed the patient, patient currently on aspirin Plavix and high intensity statin. There was concern of embolic stroke hence cardiology was consulted for transesophageal echocardiogram. #Acute CVA #Ischemic stroke Initial symptoms started on november, transient aphasia, improvement in symptoms noted with improving cognition and language function since onset. NIHSS score 0 in ER. MRI brain 11/26- showed bilateral acute infarction in both occipital areas and left parietal area MRI with MRA brain 11/17 1 shows acute/subacute infarct occipital lobe, left parietal lobe, 90% stenosis of left middle cerebral artery trifurcation vessel, 80% stenosis P1 segment left posterior cerebral artery Carotid Doppler: Showed no significant stenosis or plaque accumulation. Neurology following the patient, patient on aspirin 81 mg daily, atorvastatin 80 mg at bedtime, Plavix 75 mg p.o. daily. Currently undergoing stroke workup. Neurology recommended SANDRA with bubble study due to concern of embolic stroke. Patient denies any kind of swallowing problems or any kind of esophageal interventions or previous surgeries. Patient denies any kind of gastric ulcers bleeding and any other hematemesis or hematochezia. Patient denies any issues with anesthesia previously. Patient explained all the risks, benefits and alternatives of SANDRA including the risk of perforation, bleeding, respiratory failure secondary to sedation, injury to teeth gums esophagus and stomach. Patient understands all risks and benefits and provided consent for the procedure. We will patient n.p.o. and plan for SANDRA in the afternoon. Plan: -Keep n.p.o. -Scheduled for SANDRA in afternoon -Neurology following, management as per primary team and neurology recommendations. #Hypertension #Hypertensive urgency Blood pressure of 230/126 on presentation with headache no other symptoms. Patient was started on nicardipine drip in ED, although was eventually weaned off. Patient takes fosinopril 10 mg at home for blood pressure control. Currently patient's blood pressure is being managed on amlodipine 10 mg p.o. daily, hydralazine 50 mg p.o. 3 times daily and lisinopril 20 mg p.o. daily Plan: ?Continue lisinopril 20 mg, amlodipine 10 mg and hydralazine 50 mg -Goal systolic blood pressure less than 140 # Type 2 diabetes mellitus, new onset Patient does not have any history of diabetes, on presentation hemoglobin A1c 8.8. Management per primary team, diabetic education. #CKD stage IIIa On presentation patient's BUN 13, creatinine 1.2, GFR 48. Baseline GFR around 59, patient has CKD possibly secondary to underlying hypertension and diabetes #Dyslipidemia Lipid panel shows triglyceride 80, cholesterol 183, LDL 107, HDL 60. Considering patient's ASCVD risk, high intensity statin recommended, patient is on atorvastatin 80 mg at bedtime, continue. #UTI Patient recently was dignosed with UTI outpatient and was started on Keflex Continue oral antibiotics Thank you for the consult and allowing to participate in the care of the patient. Cardiology will continue to follow. Case discussed with Attending Dr. Bryan. Moreno Gil PGY1 Disclaimer: This note was dictated by speech recognition. Minor errors in guest experience manager may be present due to voice recognition software. Attending Provider Attestation/Addendum I have personally seen and examined the patient separately on the above date of service and discussed the plan of care with the resident. I reviewed the resident Dr. Moreno Gil consultation progress note and agree with the resident findings and plan in the note above and have also edited the documentation to reflect my findings and plan. Tre Bryan M.D. Interventional Cardiology
--- NOTE | 2024-11-28 10:11 | PC.SS ---
Follow up note: SANDRA pending. Pt will be NPO.
[2024-11-28 10:20] LABS: Partial Thromboplastin Time 24.8 Seconds (22.0-36.0)
--- NOTE | 2024-11-28 11:15 | ESPR_ITS ---
<Statement entered by Desiree Gao MD - 11/29/24 07:47> Patient was seen and examined by me personally. I have directly supervised and reviewed documentation by the team resident and agree with its findings with any exceptions or additional findings as below. Plan of care was discussed with the attending, Dr. Rios. Pending SANDRA interpretation and likely discharge tomorrow. Desiree Gao, PGY-2 Documentation for date of: 11/28/24 Subjective Subjective Interval history: Patient was seen and examined by the bedside. No acute overnight events. Patient denies weakness, speech problems, vision changes, numbness, palpitations. Dr. Bond consulted, recommended SANDRA to rule out thromboembolic cause of the stroke to to the MRI findings of multiple ischemic lesions. Telemetry strips during admission are showing sinus rhythm. 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 Overnight, she a had a high blood pressure. Amlodipine [address] Bryan was consulted, SANDRA is pending. Patient was started on sliding scale insulin yesterday, declined it due to fear of needles. Will start on oral medications upon discharge. Exam Vital Signs Temp Pulse Resp BP Pulse Ox O2 Del Method 97.1 F 58 L 12 205/79 H 98 Room Air 11/28/24 08:00 11/28/24 09:03 11/28/24 08:00 11/28/24 09:03 11/28/24 08:00 11/28/24 08:00 Narrative Exam Physical Exam General: Awake and in no acute distress. Conversational and non-toxic appearing. HEENT: Normocephalic, atraumatic, mucous membranes moist. Heart: Regular rate and rhythm, no murmurs. Lungs: Clear to auscultation with no wheezing or crackles. Abdomen: Soft, nondistended, nontender, positive bowel sounds. ?No guarding or rebound tenderness. Neurologic: Alert and oriented x3, no gross neurological deficit, and patient able to move all 4 extremities. Extremities: No edema. Skin: No rash or ecchymoses. Objective Labs 11/29/24 05:00 11/29/24 05:00 Labs: Laboratory Results - last 24 hr 11/28/24 05:16 WBC 13.6 H D RBC 3.98 L Hgb 11.8 L Hct 34.1 L MCV 86 MCH 29.6 MCHC 34.6 RDW Std Deviation 39.2 Plt Count 325 Neut % (Auto) 82 H Lymph % (Auto) 12 Castro % (Auto) 6 Eos % (Auto) 0 Baso % (Auto) 0 Neut # (Auto) 11.1 H Lymph # (Auto) 1.6 Castro # (Auto) 0.8 Eos # (Auto) 0.0 Baso # (Auto) 0.0 Immature Gran # (Auto) 0.09 H Absolute Nucleated RBC 0.00 Immature Gran % 1 H Nucleated RBC % 0 PT 11.2 INR 1.0 APTT 24.8 Sodium 136 Potassium 4.2 Chloride 101 Carbon Dioxide 23.9 Anion Gap 11 BUN 22 Creatinine 1.1 Estim Creat Clear Calc 53.6 L eGFR 53 L BUN/Creatinine Ratio 20 Glucose 284 H Calculated Osmolality 285 Calcium 9.2 Corrected Calcium 9.4 Total Bilirubin 0.4 AST 17 ALT 14 Alkaline Phosphatase 82 D Total Protein 6.6 Albumin 3.8 D Globulin 2.8 Albumin/Globulin Ratio 1.4 Quality Measures Quality Measures VTE prophylaxis Advance care planning discussed with:: other Assessment & Plan Assessment Current Active Medications: Generic Name Dose Route Start Last Admin Trade Name Freq PRN Reason Stop Dose Admin Acetaminophen 650 mg 11/27/24 00:03 Acetaminophen 325 Mg Tablet PO 12/27/24 00:02 Q6H PRN Fever >100 or pain 1-3 Amlodipine Besylate 10 mg 11/28/24 08:20 11/28/24 09:03 Amlodipine Besylate 5 Mg Tablet PO 12/28/24 08:19 Not Given QDAY STAR Aspirin 81 mg 11/27/24 09:00 11/28/24 08:31 Aspirin Ec 81 Mg Tabec PO 12/27/24 08:59 81 mg QDAY STAR Administration Atorvastatin Calcium 80 mg 11/27/24 21:00 11/27/24 20:11 Atorvastatin Calcium 20 Mg Tablet PO 12/27/24 20:59 80 mg HS STAR Administration Cephalexin HCl 500 mg 11/27/24 00:15 11/28/24 06:01 Cephalexin 250 Mg Capsule PO 12/04/24 00:14 500 mg QID STAR Administration Clopidogrel Bisulfate 75 mg 11/27/24 11:45 11/28/24 08:30 Clopidogrel Bisulfate 75 Mg Tablet PO 12/27/24 11:44 75 mg QDAY STAR Administration Dextrose 25 ml 11/27/24 11:32 Dextrose 50%-Water Inj 50 Ml Syringe IV 12/27/24 11:31 Q15MIN PRN BG 50-70 responsive npo pt Dextrose 50 ml 11/27/24 11:32 Dextrose 50%-Water Inj 50 Ml Syringe IV 12/27/24 11:31 Q15MIN PRN BG <50 OR BG <70 & pt unresponsive Glucagon 1 mg 11/27/24 11:32 Glucagon Inj 1 Mg Vial IM Q15MIN PRN BG <70, and no IV access Hydralazine HCl 50 mg 11/28/24 10:35 11/28/24 10:56 Hydralazine Hcl 25 Mg Tablet PO 12/28/24 10:34 Not Given TID STAR Hydralazine HCl 10 mg 11/28/24 10:59 Hydralazine Inj 20 Mg/Ml Vial IV 12/28/24 10:58 Q2HR PRN SBP>180 Labetalol HCl 10 mg 11/27/24 04:13 11/27/24 21:57 Labetalol Inj 5 Mg/Ml Vial 20 Ml IVP 12/27/24 03:56 10 mg Q2H PRN Administration sbp >180, Hold if HR <60 Lisinopril 20 mg 11/27/24 16:30 11/28/24 08:31 Lisinopril 20 Mg Tablet PO 12/27/24 16:29 20 mg QDAY STAR Administration Ondansetron HCl 4 mg 11/27/24 00:03 Ondansetron Inj 2 Mg/Ml Inj 2 Ml IV 12/27/24 00:02 Q6H PRN NAUSEA OR VOMITING Protocol Plan The patient is a 74 y/o female with previous medical history of obesity and hypertension. #CVA, acute versus subacute #Ischemic stroke There was concern for patient having subacute stroke and interpretation by [facility] neurologist on MRI is subacute stroke MRI brain read shows read of being acute stroke in posterior occipital and left parietal lobe. Patient's symptoms appeared to have occurred last week, patient was admitted however had CT head on November 20 which was unremarkable and in-house neurologist did not recommend inpatient admission Patient with symptoms lined up well with subacute CVA as patient does not have symptoms at this time, however it does have a headache NIHSS score of 0 in ER At this point we will continue with permissive hypertension due to possible acuity of CVA 11/27: NIHSS score 0. A1C is 8.8%. TSH is normal. ASCVD: Risk of cardiovascular event (coronary or stroke or non-fatal MS or stroke) in next 10 years. High intensity statins recommended. Speech eval normal. Carotid duplex ultrasound along the peripheral no no significant carotid stenosis. 11/28: MRI showed multiple infarcts in the occipital lobes and left parietal lobe. MRA brain showed 90% stenosis left middle cerebral artery trifurcation vessel, 80% stenosis P1 segment left posterior cerebral artery Plan: ? Neurology consulted, appreciate recs ? SANDRA pending ? Neurochecks every 4 hours ? Head of bed elevation 30 degrees ? DVT prophylaxis ? Telemetry ? Atorvastatin 80 mg at bedtime ? Continue with ASA 81 mg - Plavix 75 mg daily #Hypertensive emergency, improving #History of hypertension Blood pressure of 230 systolic when came in, also had a headache Patient was on nicardipine drip in the ED, however weaned off Plan: ? Lisinopril 20 mg daily - Amlodipine 10 mg - Hydralazine IV prn - Labetalol IV prn #New onset type 2 DM A1c 8.8% Plan: - SSI with Accuchecks discontinue due to fear of needles - start oral meds on discharge #UTI Patient recently was dignosed with UTI and was started on Keflex Plan: - continue with Keflex #Health Maintenance Disposition: Telemetry DVT prophylaxis: Lovenox GI prophylaxis: None indicated at this time Diet: NPO after midnight, SANDRA pending CODE STATUS: Full code Plan of care discussed with attending Dr. Rios, PGY-[address] Gao and PGY-[address] Medrano. Saranya Diallo MD, PGY 1. Attending Provider Attestation/Addendum I reviewed labs, imaging, EKG, home medications and prior available records. Face to face evaluation was performed by me. I have personally examined the patient and discussed assessment and plan with the IM team. I reviewed the resident note and agree with the plan with exceptions as below. Expressive aphasia Acute CVA, occipital New onset diabetes mellitus Hypertensive urgency/uncontrolled hypertension Patient's symptoms improved MRI showed ischemic changes in the bilateral frontal and left parietal areas. Given that embolic pattern, neurology recommended SANDRA. Consult cardiology. A1c is 8.4. Likely type 2 diabetes mellitus. She declined subcutaneous insulin but okay with oral medications Follow-up brain MRA: Showed 90% stenosis left middle cerebral artery trifurcation vessel and 80% stenosis P1 segment left posterior cerebral artery Continue aspirin, Plavix, and atorvastatin Started lisinopril and amlodipine. Added hydralazine 50 mg 3 times daily
[2024-11-28] MEDS: fentaNYL CIT INJ 50 mCg/ML AMP 2ML 125 MCG IV (14:04)
[2024-11-28] MEDS: MIDAZOLAM INJ 1 MG/ML VIAL 2 ML 5 MG IV (14:04)
[2024-11-28] MEDS: BENZOCAINE 20% (Hurricaine) SPRAY 1 DOSE TOP (14:05)
--- NOTE | 2024-11-28 20:08 | ESPR_ITS ---
Documentation for date of: 11/28/24 Subjective Subjective Interval history: Patient was seen in ICU today with her sister at the bedside. Her language and cognitive function are all gradually improving since the onset on 20 of November. She denies any headache, dizziness blurred vision double vision, weakness or paresthesias in the extremities or face. She is able to ambulate without any falls. Exam - Neurology Vital Signs Temp Pulse Resp BP Pulse Ox O2 Del Method O2 Flow Rate 97.1 F 60 18 164/70 H 99 Room Air 3 11/28/24 16:00 11/28/24 16:00 11/28/24 16:00 11/28/24 16:00 11/28/24 16:00 11/28/24 15:15 11/28/24 14:25 Narrative Exam GENERAL APPEARANCE: Well hydrated, well-nourished in no acute distress. HEENT: Normocephalic, atraumatic, extraocular movements intact. Pupils: Equal reacting to light and accommodation NECK: Supple, no JVD or bruits. CARDIOVASULAR: Heart: S1, S2 heard, regular without S3-S4 or murmur no rubs or gallops. LUNGS/CHEST: Clear to auscultation bilaterally. No rails, rhonchi, or wheezing. Normal inspection. ABDOMEN: Soft, nontender, with normal bowel sounds. No pulsatile masses. No rebound, rigidity, or guarding. Normal inspection and palpation. EXTREMITIES: Normal inspection and palpation. No edema, clubbing or cyanosis. SKIN: Warm and dry without rashes. Normal inspection. MUSCULOSKELETAL: No cervical, thoracic, lumbar or midline bony tenderness. Normal inspection. NEURO: Alert, awake and oriented x3. Cranial nerves: II through XII grossly intact with exception of loss of peripheral vision bilaterally. Speech and language: Normal with no dysarthria or dysphasia. Motor system: Tone and bulk: Normal: Strength: 5 out of 5 in all 4 extremities; No pronator drift noted. Deep tendon reflexes: 2+ bilaterally symmetrical. Plantar reflex: Downgoing bilaterally. Sensory system: Intact to all modalities of sensation bilaterally. Coordination: Intact to [id number] and qlfp-[id number] test bilaterally. No ataxia, no dysmetria, or dysdiadochokinesia noted. No intention tremors noted. Gait: Normal. Toe, heel, tandem walk all are normal. Romberg: Negative. No signs of meningeal irritation noted. PSYCHIATRIC: Normal mood and affect. Objective Labs 11/29/24 05:00 11/29/24 05:00 Labs: Laboratory Results - last 24 hr 11/28/24 05:16 WBC 13.6 H D RBC 3.98 L Hgb 11.8 L Hct 34.1 L MCV 86 MCH 29.6 MCHC 34.6 RDW Std Deviation 39.2 Plt Count 325 Neut % (Auto) 82 H Lymph % (Auto) 12 [place] % (Auto) 6 Eos % (Auto) 0 Baso % (Auto) 0 Neut # (Auto) 11.1 H Lymph # (Auto) 1.6 [place] # (Auto) 0.8 Eos # (Auto) 0.0 Baso # (Auto) 0.0 Immature Gran # (Auto) 0.09 H Absolute Nucleated RBC 0.00 Immature Gran % 1 H Nucleated RBC % 0 PT 11.2 INR 1.0 APTT 24.8 Sodium 136 Potassium 4.2 Chloride 101 Carbon Dioxide 23.9 Anion Gap 11 BUN 22 Creatinine 1.1 Estim Creat Clear Calc 53.6 L eGFR 53 L BUN/Creatinine Ratio 20 Glucose 284 H Calculated Osmolality 285 Calcium 9.2 Corrected Calcium 9.4 Total Bilirubin 0.4 AST 17 ALT 14 Alkaline Phosphatase 82 D Total Protein 6.6 Albumin 3.8 D Globulin 2.8 Albumin/Globulin Ratio 1.4 Assessment & Plan Assessment and plan (1) Acute CVA (cerebrovascular accident): Status: Acute Assessment and plan: With improving cognition and language function since the onset: November. No significant focal neurological deficit other than loss of peripheral vision bilaterally MRI brain showed bilateral acute infarction in both occipital areas and left parietal area, microbleed/calcification in multiple areas. Carotid Doppler: Showed no significant stenosis or plaque accumulation Transesophageal echocardiogram: Resulted negative Continue with aspirin, Plavix and statin with better blood pressure and diabetes control. (2) Hypertension: Status: Acute Assessment and plan: Agreed with stepdown to telemetry as her blood pressure has been fairly controlled on oral medications, does not need to be on IV infusion. Continue with aggressive blood pressure management to keep the blood pressure under 140 mmHg systolic (3) Type 2 diabetes mellitus: Status: Acute Assessment and plan: No history of diabetes that she knows of. A1c: 8.4 Needs diabetes education for better control with the diet and exercise to have the A1c under 7 in addition to medication.
[2024-11-28] MEDS: hydrALAZINE HCL 25 MG TABLET 50 MG PO (21:33)
[2024-11-28] MEDS: ATORVASTATIN CALCIUM 20 MG TABLET 80 MG PO (21:34)
[2024-11-29] VITALS (9 sets, daily range): BP systolic 152–178; BP diastolic 79–100; PULSE 58–79; RESP 18–22; TEMP 36.1–37.1; O2SAT 94–98; BMI 33.5
[2024-11-29] MEDS: cephALEXin 250 MG CAPSULE 500 MG PO (05:41)
[2024-11-29] MEDS: hydrALAZINE HCL 25 MG TABLET 50 MG PO ×2 (05:41→14:23)
[2024-11-29 06:02] LABS: Basophils # (Auto) 0.1 Thou/mm3 (0.0-0.2); Basophils % (Auto) 1 % (0-2.5); Eosinophils # (Auto) 0.2 Thou/mm3 (0.0-0.5); Eosinophils % (Auto) 2 % (0-10); Hematocrit 36.1 % (36.0-46.0); Hemoglobin 12.2 g/dL (12.0-16.0); Immature Granulocytes % (Auto) 0 % (0-0); Immature Granulocytes Auto 0.04 Thou/mm3 (0.00-0.00); Lymphocytes # (Auto) 3.3 Thou/mm3 (1.0-4.8); Lymphocytes % (Auto) 35 % (10-50); Mean Corpuscular HGB Conc 33.8 g/dl (31.0-37.0); Mean Corpuscular Hemoglobin 29.6 pg (25.0-35.0); Mean Corpuscular Volume 88 fL (80-100); Monocytes # (Auto) 0.9 Thou/mm3 (0.0-0.8); Monocytes % (Auto) 10 % (0-12); Neutrophils # (Auto) 4.8 Thou/mm3 (1.8-7.7); Neutrophils % (Auto) 52 % (37-80); Nucleated Red Blood Cell % 0 /100 WBC (0); Platelet Count 320 Thou/mm3 (140-440); RDW Standard Deviation 42.1 fL (36.4-46.3); Red Blood Count 4.12 Miln/mm3 (4.00-5.20); White Blood Count 9.4 Thou/mm3 (3.6-11.0)
[2024-11-29 06:35] LABS: Alanine Aminotransferase 13 U/L (10-49); Albumin, Serum 3.9 gm/dL (3.4-4.8); Albumin/Globulin Ratio 1.4 (1.2-2.2); Alkaline Phosphatase 84 U/L (46-116); Anion Gap 10 (7-16); Aspartate Amino Transferase 17 U/L (0-34); BUN/Creatinine Ratio 21 Ratio (12-20); Bilirubin,Total 0.4 mg/dL (0.3-1.2); Blood Urea Nitrogen 23 mg/dL (9-23); Calcium 9.5 mg/dL (8.3-10.6); Calcium (Corrected) 9.6 mg/dL (8.5-10.1); Carbon Dioxide 26.6 mMol/L (20.0-31.0); Chloride 102 mMol/L (98-107); Creatinine (Component) 1.1 mg/dL (0.6-1.3); Estimated Creatinine Clearance 53.6 mL/min (>60); Globulin 2.8 gm/dL (2.3-3.5); Glucose 199 mg/dL (74-106); Osmolality,Calculated 287 (275-295); Potassium 3.8 mMol/L (3.4-5.1); Sodium 139 mMol/L (136-145); Total Protein 6.7 gm/dL (5.7-8.2); eGFR 53 See Note
[2024-11-29] MEDS: Lisinopril 20 MG TABLET PO ×2 (08:34→09:48)
[2024-11-29] MEDS: amLODIPine BESYLATE 5 MG TABLET 10 MG PO (08:34)
[2024-11-29] MEDS: ASPIRIN EC 81 MG TABEC PO (08:36)
[2024-11-29] MEDS: CLOPIDOGREL BISULFATE 75 MG TABLET PO (08:37)
--- NOTE | 2024-11-29 09:26 | PC.SS ---
Late note 12-07-24: SS met with patient regarding her d/c plan.? Pt is alert/oriented.? Pt was admitted for Stroke.? Pt confirmed demographic and contact information is correct on facesheet.? Pt resides with .? Pt ambulates independently without assistance or DME.? Pt is ok with all ADLs.? Patient?s pharmacy of choice [facility] [address] Pt named her , Don Rojas medical decision maker if he is unable.? SS provided verbal options for d/c to home or SNF.? Patient?s choice is to return home upon d/c.? Pt does not have an advance directive, SS offered, and pt declined.? Pt states not diabetic and is not on dialysis.? Pt states she followed up with PCP 3 days ago prior to be hospitalized D/C plan:? Return home Next of Kin:? ?Don Fabianelwood, , phone# [phone] or Deana Rojas, dtr, phone# [phone] PCP:? Dr. Iona Espitia Address:? Correct on facesheet
--- NOTE | 2024-11-29 11:42 | ESPR_ITS ---
Documentation for date of: 11/29/24 Subjective Subjective Interval history: Patient seen and examined and bedside. TTE completed showed Normal LV size and function with an estimated EF 60-65%. Diastolic Dysfunction I present. Normal RV size and function with RVSP 15 mmHg. Mild MAC with trace MR and TR. SANDRA completed yesterday, 11/28/2024 No evidence of any LA or NITO thrombus. No PFO or ASD. Bubble study negative. Normal LV size and function. EF 60-65%. Normal RV size and function. Trace MR and trace to mild TR. Mild atherosclerotic plaque noted in the descending aorta and aortic arch. Has no current complaints, reports she wants to go home. Exam Vital Signs Temp Pulse Resp BP Pulse Ox O2 Del Method O2 Flow Rate 96.9 F 79 18 158/79 H 96 Room Air 3 11/29/24 08:00 11/29/24 09:48 11/29/24 08:00 11/29/24 09:48 11/29/24 08:00 11/29/24 08:00 11/28/24 14:25 Narrative Exam Physical Exam General: Awake and in no acute distress. Conversational and non-toxic appearing. HEENT: Normocephalic, atraumatic, mucous membranes moist. Heart: Regular rate and rhythm, no murmurs. Lungs: Clear to auscultation with no wheezing or crackles. Abdomen: Soft, nondistended, nontender, positive bowel sounds. ?No guarding or rebound tenderness. Neurologic: Alert and oriented x3, no gross neurological deficit, and patient able to move all 4 extremities. Extremities: No edema. Skin: No rash or ecchymoses. Objective Labs 11/29/24 05:00 11/29/24 05:00 Labs: Laboratory Results - last 24 hr 11/29/24 05:00 WBC 9.4 RBC 4.12 Hgb 12.2 Hct 36.1 MCV 88 MCH 29.6 MCHC 33.8 RDW Std Deviation 42.1 Plt Count 320 Neut % (Auto) 52 Lymph % (Auto) 35 [place] % (Auto) 10 Eos % (Auto) 2 Baso % (Auto) 1 Neut # (Auto) 4.8 Lymph # (Auto) 3.3 [place] # (Auto) 0.9 H Eos # (Auto) 0.2 Baso # (Auto) 0.1 Immature Gran # (Auto) 0.04 H Absolute Nucleated RBC 0.00 Immature Gran % 0 Nucleated RBC % 0 Sodium 139 Potassium 3.8 Chloride 102 Carbon Dioxide 26.6 Anion Gap 10 BUN 23 Creatinine 1.1 Estim Creat Clear Calc 53.6 L eGFR 53 L BUN/Creatinine Ratio 21 H Glucose 199 H D Calculated Osmolality 287 Calcium 9.5 Corrected Calcium 9.6 Total Bilirubin 0.4 AST 17 ALT 13 Alkaline Phosphatase 84 Total Protein 6.7 Albumin 3.9 Globulin 2.8 Albumin/Globulin Ratio 1.4 Quality Measures Quality Measures VTE prophylaxis Advance care planning discussed with:: patient Assessment & Plan Assessment Current Active Medications: Generic Name Dose Route Start Last Admin Trade Name Freq PRN Reason Stop Dose Admin Acetaminophen 650 mg 11/27/24 00:03 Acetaminophen 325 Mg Tablet PO 12/27/24 00:02 Q6H PRN Fever >100 or pain 1-3 Amlodipine Besylate 10 mg 11/28/24 08:20 11/29/24 08:34 Amlodipine Besylate 5 Mg Tablet PO 12/28/24 08:19 10 mg QDAY STAR Administration Aspirin 81 mg 11/27/24 09:00 11/29/24 08:36 Aspirin Ec 81 Mg Tabec PO 12/27/24 08:59 81 mg QDAY STAR Administration Atorvastatin Calcium 80 mg 11/27/24 21:00 11/28/24 21:34 Atorvastatin Calcium 20 Mg Tablet PO 12/27/24 20:59 80 mg HS STAR Administration Clopidogrel Bisulfate 75 mg 11/27/24 11:45 11/29/24 08:37 Clopidogrel Bisulfate 75 Mg Tablet PO 12/27/24 11:44 75 mg QDAY STAR Administration Dextrose 25 ml 11/27/24 11:32 Dextrose 50%-Water Inj 50 Ml Syringe IV 12/27/24 11:31 Q15MIN PRN BG 50-70 responsive npo pt Dextrose 50 ml 11/27/24 11:32 Dextrose 50%-Water Inj 50 Ml Syringe IV 12/27/24 11:31 Q15MIN PRN BG <50 OR BG <70 & pt unresponsive Glucagon 1 mg 11/27/24 11:32 Glucagon Inj 1 Mg Vial IM Q15MIN PRN BG <70, and no IV access Hydralazine HCl 50 mg 11/28/24 10:35 11/29/24 05:41 Hydralazine Hcl 25 Mg Tablet PO 12/28/24 10:34 50 mg TID STAR Administration Hydralazine HCl 10 mg 11/28/24 10:59 11/28/24 14:38 Hydralazine Inj 20 Mg/Ml Vial IV 12/28/24 10:58 10 mg Q2HR PRN Administration SBP>180 Labetalol HCl 10 mg 11/27/24 04:13 11/27/24 21:57 Labetalol Inj 5 Mg/Ml Vial 20 Ml IVP 12/27/24 03:56 10 mg Q2H PRN Administration sbp >180, Hold if HR <60 Lisinopril 40 mg 11/30/24 09:00 Lisinopril 20 Mg Tablet PO 12/30/24 08:59 QDAY STAR Ondansetron HCl 4 mg 11/27/24 00:03 Ondansetron Inj 2 Mg/Ml Inj 2 Ml IV 12/27/24 00:02 Q6H PRN NAUSEA OR VOMITING Protocol Plan Plan Assessment and plan: Summary: Ms. Rojas is a 74-year-old female with past medical history of hypertension and obesity who presented to [facility] on 11/28/2024 post MRI brain study and was informed by radiology personnel to go to the ER. Patient had an event of transient aphasia 1 week ago, reports to have an episode in which she had trouble finding words, make sentences and read a clock. In-house MRI was positive for acute infarcts in both occipital lobes posterior left parietal lobe. Patient was admitted to hospital for CVA, acute versus subacute, ischemic stroke patient's hemoglobin A1c was 8.8, TSH normal, had high ASCVD score, carotid duplex ultrasound was obtained showed no significant carotid stenosis. In-house neurology assessed the patient, patient currently on aspirin Plavix and high intensity statin. There was concern of embolic stroke hence cardiology was consulted for transesophageal echocardiogram. #Acute CVA #Ischemic stroke Initial symptoms started on november, transient aphasia, improvement in symptoms noted with improving cognition and language function since onset. NIHSS score 0 in ER. MRI brain 11/26- showed bilateral acute infarction in both occipital areas and left parietal area MRI with MRA brain 11/17 1 shows acute/subacute infarct occipital lobe, left parietal lobe, 90% stenosis of left middle cerebral artery trifurcation vessel, 80% stenosis P1 segment left posterior cerebral artery Carotid Doppler: Showed no significant stenosis or plaque accumulation. Neurology following the patient, patient on aspirin 81 mg daily, atorvastatin 80 mg at bedtime, Plavix 75 mg p.o. daily. Currently undergoing stroke workup. Neurology recommended SANDRA with bubble study due to concern of embolic stroke. TTE completed showed Normal LV size and function with an estimated EF 60-65%. Diastolic Dysfunction I present. Normal RV size and function with RVSP 15 mmHg. Mild MAC with trace MR and TR. SANDRA completed yesterday, 11/28/2024 No evidence of any LA or NITO thrombus. No PFO or ASD. Bubble study negative. Normal LV size and function. EF 60-65%. Normal RV size and function. Trace MR and trace to mild TR. Mild atherosclerotic plaque noted in the descending aorta and aortic arch. Plan: -Follow up outpatient in clinic in 1 week post discharge -Neurology following, management as per primary team and neurology recommendations. -Continue with aspirin 81 mg for 17 more days -Take Plavix 75 mg every day #Hypertension #Hypertensive urgency Blood pressure of 230/126 on presentation with headache no other symptoms. Patient was started on nicardipine drip in ED, although was eventually weaned off. Patient takes fosinopril 10 mg at home for blood pressure control. Currently patient's blood pressure is being managed on amlodipine 10 mg p.o. daily, hydralazine 50 mg p.o. 3 times daily and lisinopril 20 mg p.o. daily Plan: ?Continue lisinopril 40 mg, amlodipine 10 mg and hydralazine 50 mg -Goal systolic blood pressure less than 140 # Type 2 diabetes mellitus, new onset Patient does not have any history of diabetes, on presentation hemoglobin A1c 8.8. Management per primary team, diabetic education. Take Metformin 500 mg two times a day every day #CKD stage IIIa On presentation patient's BUN 13, creatinine 1.2, GFR 48. Baseline GFR around 59, patient has CKD possibly secondary to underlying hypertension and diabetes #Dyslipidemia Lipid panel shows triglyceride 80, cholesterol 183, LDL 107, HDL 60. Considering patient's ASCVD risk, high intensity statin recommended, patient is on atorvastatin 80 mg at bedtime, continue. #UTI Patient recently was dignosed with UTI outpatient and was started on Keflex Continue oral antibiotics Thank you for the consult and allowing to participate in the care of the patient. Cardiology will continue to follow. Case discussed with Attending Dr. Bryan. Moreno Gil PGY1 Disclaimer: This note was dictated by speech recognition. Minor errors in automatic casting machine operator may be present due to voice recognition software. Attending Provider Attestation/Addendum I have personally seen and examined the patient separately on the above date of service and discussed the plan of care with the resident. I reviewed the resident Dr. Moreno Gil consultation progress note and agree with the resident findings and plan in the note above and have also edited the documentation to reflect my findings and plan. Tre Bryan M.D. Interventional Cardiology
--- NOTE | 2024-11-29 12:03 | ECHO_ITS ---
Transthoracic Echo Report Ht (in): 66 Wt (lb): 210 Exam Location: [facility] Status: Inpatient Relationship Management Lead: CHITO Ojeda^^^^ Indications: Procedure Performed: BP: 129 / 78 HR: 69 Rhythm: Sinus Technical Quality: Fair MEASUREMENTS (Male / Female) Normal Values 2D ECHO LV Diastolic Diameter PLAX 5.2 cm 4.2 - 5.9 / 3.9 - 5.3 cm LV Systolic Diameter PLAX 3.5 cm IVS Diastolic Thickness 0.7 cm 0.6 - 1.0 / 0.6 - 0.9 cm LVPW Diastolic Thickness 0.7 cm 0.6 - 1.0 / 0.6 - 0.9 cm LV Relative Wall Thickness 0.3 LVOT Diameter 1.7 cm Aortic Root Diameter 3.2 cm LA Systolic Diameter LX 3.4 cm 3.0 - 4.0 / 2.7 - 3.8 cm LV Ejection Fraction MOD BP 67.9 % >= 55 % LV Cardiac Index MOD BP 2231.6 cm?/min?m? LV Ejection Fraction MOD 4C 63.3 % LV Cardiac Index MOD 4C 2160.8 cm?/min?m? LV Ejection Fraction 4C AL 61.7 % LV Cardiac Index 4C AL 2063.9 cm?/min?m? LV Ejection Fraction MOD 2C 71.8 % LV Cardiac Index MOD 2C 2054.5 cm?/min?m? LV Ejection Fraction 2C AL 72.3 % LV Cardiac Index 2C AL 2096.2 cm?/min?m? LA Volume Index 18.6 cm?/m? 16 - 28 cm?/m? DOPPLER AV Peak Velocity 124.7 cm/s AV Peak Gradient 6.2 mmHg AV Mean Gradient 4.0 mmHg AV Velocity Time Integral 28.7 cm AI Peak Velocity 182.0 cm/s AI Peak Gradient 13.2 mmHg AI Pressure Half Time 555.0 ms LVOT Peak Velocity 80.5 cm/s LVOT Peak Gradient 2.6 mmHg LVOT Velocity Time Integral 20.9 cm LVOT Cardiac Index 1527.6 cm?/min?m? AV Area Cont Eq vti 1.7 cm? AV Area Cont Eq pk 1.5 cm? MV Area PHT 2.7 cm? Mitral E Point Velocity 65.2 cm/s Mitral A Point Velocity 98.0 cm/s Mitral E to A Ratio 0.7 LV E' Lateral Velocity 7.3 cm/s Mitral E to LV E' Lateral Ratio 9.0 LV E' Septal Velocity 6.1 cm/s Mitral E to LV E' Septal Ratio 10.7 TR Peak Velocity 162.0 cm/s TR Peak Gradient 10.5 mmHg PV Peak Velocity 96.1 cm/s PV Peak Gradient 3.7 mmHg RVOT Peak Velocity 46.6 cm/s FINDINGS Left Ventricle Normal left ventricular size, wall thickness, systolic function with no obvious regional wall motion abnormalities. There is grade I diastolic dysfunction of the left ventricle (impaired relaxation pattern). The left ventricular ejection fraction is normal, estimated at 55-60%. Right Ventricle The right ventricle is normal in size and systolic function. The estimated right ventricular systolic pressure, 15 mmHg. Left Atrium The left atrium is normal by two-dimensional, color flow and Doppler imaging with no structural abnormalities, no thrombus formation present. Right Atrium The right atrium is normal by two-dimensional imaging, color flow and Doppler imaging with no structural abnormalities, no thrombus formation present. Atrial Septum The interatrial septum appears normal with no evidence of a shunt. Aorta The aorta is normal by two-dimensional, color flow and Doppler interrogation. Mitral Valve Trace to mild mitral regurgitation. Mitral annular calcification. Aortic Valve The aortic valve is trileaflet and normal by two-dimensional, color flow and Doppler interrogation. There is no significant aortic valve regurgitation. Tricuspid Valve There is trace tricuspid valve regurgitation. Pulmonic Valve The pulmonic valve is not well visualized. There is no significant pulmonic valve regurgitation. Vessels The pulmonary artery appears normal. The inferior vena cava pulmonary and hepatic veins appear normal. Pericardium The pericardium is normal by two-dimensional imaging. There is no significant pericardial effusion. CONCLUSIONS indication: Stroke Normal LV size and function with an estimated EF 60-65%. Diastolic Dysfunction I present. Normal RV size and function with RVSP 15 mmHg. Mild MAC with trace MR and TR. Tre Bryan (Electronically Signed) Final Date: 29 November 2024 15:42
--- NOTE | 2024-11-29 18:16 | ESDS_ITS ---
<Statement entered by Desiree Gao MD - 11/30/24 08:04> Patient was seen and examined by me personally. I have reviewed the below documentation by the team resident and agree with its findings with any exceptions as below. Discharge plan was discussed with the attending, Dr. Rios. SANDRA reported showed normal EF without any evidence of thrombi. Patient stable for discharge home, will start aspirin, Plavix, statin, metformin for newly diagnosed diabetes, and 3 antihypertensives. Desiree Gao, PGY-2 Planned Discharge Date 11/29/24 DS: Providers Provider Date of admission: 11/27/24 00:03 Primary care physician: Iona Espitia PA-C Admitting Provider: Nisha Lambert MD Attending Provider on Admission: Elliott Rios MD Consults: 11/26/24 19:38 Consult to Neurology / Tele-Neurology Routine Comment: Consulting Provider: [facility] 11/27/24 00:08 Consult to Neurology / Tele-Neurology Routine Comment: Consulting Provider: Ranjeet Bond Referral Physical Therapy Routine Comment: Physician Instructions: Referral Speech Therapy Routine Comment: 11/27/24 11:32 Referral Registered Dietitian Routine Comment: 11/27/24 11:34 Referral Registered Dietitian Routine Comment: 11/28/24 09:28 Consult to Cardiology Routine Comment: Susp embolic stroke Consulting Provider: Tre Bryan Attending Provider on DC: Saranya Diallo MD Discharging Provider: Saranya Diallo MD DS: Diagnosis Problem List Completed Was Problem List Reviewed/Reconciled?: Yes Hospital Course Hospital Course Hospital course: The patient is a 74-year-old female with previous medical history of obesity, recently diagnosed hypertension who was brought to the ED due to trouble with finding words, reading clock, reading text on the telephone, her found her: Distal close in the home. She went to help primary care practitioner and had an MRI done outpatient where she was advised to go to the ED. In the ED she was hemodynamically stable and was saturating well on room air, systolic blood pressure was 230. MRI showed infarct in occipital lobes and left parietal lobe. Teleneuro was consulted, NIHSS score was 0. Patient was not a candidate for thrombolytic therapy. Patient was admitted for stroke. After the 24-hour of permissive hypertension she was started on aggressive hypertension management. Also she was found to have an elevated A1c of 8.4 and high LDL 107. She was started on high intensity statins. 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 SANDRA was negative for left atrial and left atrial appendage thrombus. Dual anticoagulant therapy was started. During her admission her condition, blood pressure improved, she reported that her speech has improved. Patient was seen and examined at the bedside and was medically cleared for discharge home with discharge instructions. Hospital diagnoses: #CVA, acute versus subacute #Ischemic stroke #Motor aphasia, improved #Hypertensive emergency, improving #History of hypertension #New onset type 2 DM #UTI, resolving Discharge recommendations: - Follow-up with your PCP - Follow-up with Dr. Bond in 1-2 weeks - If you have worsening of your condition, call 911 or come to the ED For blood pressure: - Take Amlodipine 10 mg every day - Take Lisinopril 40 mg every day - Take Hydralazine 50 mg three times a day For cholesterol: - Take Atorvastatin 80 mg every day For stroke prevention: - Continue with aspirin 81 mg for 17 more days - Take Plavix 75 mg every day For diabetes: - Take Metformin 500 mg two times a day every day Plan of care discussed with attending Dr. Rios, PGY-[address] Gao and PGY-[address] Medrano. Saranya Diallo MD, PGY 1. Time Spent with Patient Time attestation: Total time spent providing and/or coordinating discharge services: Exam Vital Signs Temp Pulse Resp BP Pulse Ox O2 Del Method O2 Flow Rate 98.7 F 69 20 170/89 H 98 Nasal Cannula 3 11/29/24 15:11/29/24 15:00 11/29/24 15:00 11/29/24 15:11/29/24 15:11/29/24 15:11/28/24 14:25 Narrative Exam Physical Exam General: Awake and in no acute distress. Conversational and non-toxic appearing. HEENT: Normocephalic, atraumatic, mucous membranes moist. Heart: Regular rate and rhythm, no murmurs. Lungs: Clear to auscultation with no wheezing or crackles. Abdomen: Soft, nondistended, nontender, positive bowel sounds. ?No guarding or rebound tenderness. Neurologic: Alert and oriented x3, no gross neurological deficit, and patient able to move all 4 extremities. Extremities: No edema. Skin: No rash or ecchymoses. Discharge Plan Plan Patient Disposition: HOME (Self Care) Patient condition on transfer: Stable Care Plan Goals: Discharge recommendations: - Follow-up with your PCP - Follow-up with Dr. Bond in 1-2 weeks - If you have worsening of your condition, call 911 or come to the ED For blood pressure: - Take Amlodipine 10 mg every day - Take Lisinopril 40 mg every day - Take Hydralazine 50 mg three times a day For cholesterol: - Take Atorvastatin 80 mg every day For stroke prevention: - Continue with aspirin 81 mg for 17 more days - Take Plavix 75 mg every day For diabetes: - Take Metformin 500 mg two times a day every day Prescriptions/Referrals Prescriptions/Med Rec: New amlodipine 10 mg tablet 10 mg PO QDAY 30 Days Qty: 30 2RF aspirin [Ecotrin Low Strength] 81 mg Tablet,Delayed Release (Dr/Ec) 81 mg PO QDAY 17 Days Qty: 17 0RF atorvastatin 80 mg tablet 80 mg PO HS 30 Days Qty: 30 2RF hydralazine 50 mg tablet 50 mg PO TID 30 Days Qty: 90 2RF lisinopril 40 mg tablet 40 mg PO QDAY 30 Days Qty: 30 2RF clopidogrel 75 mg tablet 75 mg PO QDAY 30 Days Qty: 30 2RF metformin 500 mg tablet 500 mg PO BID 30 Days Qty: 60 2RF Discontinued cephalexin 500 mg capsule 500 mg PO QID 7 Days Qty: 28 0RF Referrals: Iona Espitia PA-C [Primary Care Provider] - Patient/Caregiver Discharge Instructions Education Materials: Controlling High Blood Pressure, Diabetes: Caring for Your Body, Aphasia: Improving Communication, Discharge Instructions for Stroke, Diabetes Carbs Fats Protein Print Language: [place]ian Stand Alone Forms: Janell Award Info., Patient Portal Info Letter Discharge Order Discharge Orders: Discharge (Routine); Ordered 11/29/24 Ordered By: Desiree Gao Quality Discharge Quality Measures VTE prophylaxis Attestestation Attestation I reviewed labs, imaging, EKG, home medications and prior available records. Face to face evaluation was performed by me. I have personally examined the patient and discussed assessment and plan with the IM team. I reviewed the resident note and agree with the plan with exceptions as below. Expressive aphasia Acute CVA, occipital New onset diabetes mellitus Hypertensive urgency/uncontrolled hypertension Patient's symptoms improved MRI showed ischemic changes in the bilateral frontal and left parietal areas. Given that embolic pattern, neurology recommended SANDRA. Consulted cardiology. SANDRA is negative for thrombus. A1c is 8.4. Likely type 2 diabetes mellitus. She declined subcutaneous insulin but okay with oral medications. Will discharge on metformin Follow-up brain MRA: Showed 90% stenosis left middle cerebral artery trifurcation vessel and 80% stenosis P1 segment left posterior cerebral artery Continue aspirin, Plavix, and atorvastatin Outpatient follow-up with neurology Started lisinopril and amlodipine. Added hydralazine 50 mg 3 times daily Time spent is 40 minutes. More than 50% of the time was spent on patient education and coordination of care.
== END 2024-11-29 15:26 | disposition home or self-care (01) | DRG 65 ==
LOC: SERX 23:06 → SERHOLD 11-27 00:48 → S2SX 11-27 08:37 → S2NX 11-27 21:40
PROVIDERS: Internal Medicine Cardiovascular Disease; Admitting Provider Internal Medicine; Emergency Provider Emergency Medicine; PCP Physician Assistant; Visit Provider Student in an Organized Health Care Education/Training Program
PROC: (CPT 93312; principal; 2024-11-28 12:45)
DX: I63.89 Other cerebral infarction (principal); I16.1 Hypertensive emergency; N39.0 Urinary tract infection, site not specified; I12.9 Hypertensive chronic kidney disease with stage 1 through stage 4 chronic kidney disease, or unspecified chronic kidney disease; E11.22 Type 2 diabetes mellitus with diabetic chronic kidney disease; E66.9 Obesity, unspecified; N18.31 Chronic kidney disease, stage 3a; R13.10 Dysphagia, unspecified; R47.01 Aphasia; Z79.02 Long term (current) use of antithrombotics/antiplatelets; Z96.651 Presence of right artificial knee joint; Z79.899 Other long term (current) drug therapy; Z79.84 Long term (current) use of oral hypoglycemic drugs; Z79.82 Long term (current) use of aspirin; Z68.33 Body mass index [BMI] 33.0-33.9, adult
CPT/HCPCS: 36415; 70544; 80053; 80061; 80307; 81001; 83036; 83735; 83880; 84100; 84443; 84484; 84702; 84703; 85025; 85610; 85730; 92610; 93306; 93312; 93880; 97162; 99152; J0360; J1100; J1953; J2250; J2404; J3010; J3490; A9270; J1920

== ENCOUNTER → 2024-11-26 | Outpatient (CLI) | payer MEDICARE, BC, SELFPAY ==
--- NOTE | 2024-11-26 17:17 | XR_ITS ---
Examination: MRI of brain without intravenous contrast. MRI brain with intravenous contrast. Date and time of exam:November 26, 2024 1804 hrs. Comparison March 16, 2013 Indications: Disorientation today Technique: Multiple axial and sagittal images of the brain to been obtained. Siemens high-resolution 1.52 Ana short bore scanner utilized. Sagittal sections, T1 weighted images, TR 500, TE 14, are performed. Axial sections proton-density and T2-weighted images have been obtained. Inversion recovery axial images, TR 9260, TE 111, TR 2500. Diffusion weighted images, axial sections, TR 4800, TE 128, B value 1000. Axial sections, ADC map, TR 4800, TE 128. Axial and coronal images were also obtained post 19 cc gadolinium administered intravenously. Findings:: Enlargement of the sella turcica is not present. The optic chiasm and infundibular stalk are not remarkable. There is no localized enlargement of the medulla or ernesto. Fourth ventricle and cerebellar tonsils appear normal in position. No subacute area of hemorrhage density is seen. Fourth ventricle is midline. Mass in the cerebellopontine angle region is not evident. 7th and 8th nerve complexes exhibit symmetry Globes are symmetrical Orbital musculature including medial lateral rectus muscles do not exhibit abnormality Increased white matter signal is prominent Effacement of the cortical sulcal markings is not identified. Mass effect upon the ventricular system is not identified. 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
--- NOTE | 2024-11-26 21:12 | PRELIM_ITS ---
MRI of the brain without and with intravenous gadolinium. November 26, 2024 1804 hours Clinical history: Disorientation, unspecified. No prior study is available for comparison. Findings: There is an area of restriction diffusion in right posterior parietal/occipital lobe with corresponding gyriform enhancement on post-contrast images. There are periventricular and subcortical T2/FLAIR hyperintensities, representing chronic small vessel ischemic changes. An old lacunar infarct is seen in right parietal valencia radiata. The brain parenchyma is otherwise unremarkable. The hippocampal complexes are symmetric. There is no blooming on gradient echo images to suggest remote bleed or calcification. There is no intracranial hemorrhage. The ventricles, basal cisterns and sulci are slightly prominent, suggestive of volume loss. Normal intracranial flow voids are noted. The seventh and eighth n erve root complexes are normal. The calvarium, pituitary fossa and cervicomedullary junction appear unremarkable. A small retention cyst versus polyp is seen in right maxillary sinus. There is T2/FLAIR hyperintensity in left mastoid air cells, concerning for acute mastoiditis. The right mastoid air cells and the remainder of visualized paranasal sinuses are clear. Impression: Area of restriction diffusion in right posterior parietooccipital lobe, with corresponding gyriform enhancement. Findings are suggestive of acute to early subacute infarct with luxury perfusion versus cortical laminar necrosis. Recommend clinical correlation and follow up. Mild volume loss and chronic small vessel ischemic changes. Other findings as described above. Discussion Details: Results verbally communicated to : Dr. Navas at 09:02 PM 11/26/2024 Report Electronically Signed By: Delgado Recinos 11/26/2024 9:11:39 PM [EST]
== END | disposition home or self-care (01) ==
PROVIDERS: PCP Physician Assistant; Referring Provider Physician Assistant; Visit Provider Physician Assistant
DX: I67.82 Cerebral ischemia (principal); G93.9 Disorder of brain, unspecified; I63.89 Other cerebral infarction
CPT/HCPCS: 70553; A9579

== ENCOUNTER → 2024-12-13 | Outpatient (CLI) | payer MEDICARE, BC, SELFPAY ==
[2024-12-13 15:13] LABS: Collection Type, Urine Clean Catch
[2024-12-13 15:33] LABS: Basophils # (Auto) 0.1 Thou/mm3 (0.0-0.2); Basophils % (Auto) 1 % (0-2.5); Eosinophils # (Auto) 0.3 Thou/mm3 (0.0-0.5); Eosinophils % (Auto) 4 % (0-10); Hematocrit 38.2 % (36.0-46.0); Hemoglobin 13.1 g/dL (12.0-16.0); Immature Granulocytes % (Auto) 0 % (0-0); Immature Granulocytes Auto 0.02 Thou/mm3 (0.00-0.00); Lymphocytes # (Auto) 2.2 Thou/mm3 (1.0-4.8); Lymphocytes % (Auto) 29 % (10-50); Mean Corpuscular HGB Conc 34.3 g/dl (31.0-37.0); Mean Corpuscular Hemoglobin 29.5 pg (25.0-35.0); Mean Corpuscular Volume 86 fL (80-100); Monocytes # (Auto) 0.7 Thou/mm3 (0.0-0.8); Monocytes % (Auto) 9 % (0-12); Neutrophils # (Auto) 4.4 Thou/mm3 (1.8-7.7); Neutrophils % (Auto) 57 % (37-80); Nucleated Red Blood Cell % 0 /100 WBC (0); Platelet Count 335 Thou/mm3 (140-440); RDW Standard Deviation 40.8 fL (36.4-46.3); Red Blood Count 4.44 Miln/mm3 (4.00-5.20); White Blood Count 7.7 Thou/mm3 (3.6-11.0)
[2024-12-13 15:38] LABS: Bilirubin,Urine Negative (Negative); Blood,Urine Negative (Negative); Clarity,Urine Clear (Clear/Hazy); Color,Urine Yellow (Lt Yel-Yel); Culture Indicated,Urine Not Indicated; Glucose, Urine Negative (Negative); Ketones,Urine Negative (Negative); Leukocyte Esterase,Urine Positive (Negative); Nitrite,Urine Negative (Negative); PH,Urine 5.5 (5.0-7.0); Protein,Urine Negative (Neg - Trace); RBC,Urine 2 /hpf (0-3); Specific Gravity,Urine 1.017 (1.001-1.035); Squamous Epithelial Cell,Urine 1 /hpf (0-5); Urobilinogen,Urine Negative mg/dL (0.0-1.0); WBC,Urine 3 /hpf (0-5)
[2024-12-13 16:17] LABS: Alanine Aminotransferase 25 U/L (10-49); Albumin, Serum 4.3 gm/dL (3.4-4.8); Albumin/Globulin Ratio 1.5 (1.2-2.2); Alkaline Phosphatase 118 U/L (46-116); Anion Gap 10 (7-16); Aspartate Amino Transferase 20 U/L (0-34); BUN/Creatinine Ratio 16 Ratio (12-20); Bilirubin,Total 0.5 mg/dL (0.3-1.2); Blood Urea Nitrogen 19 mg/dL (9-23); Carbon Dioxide 25.2 mMol/L (20.0-31.0); Cardiac Risk Estimate 2.4 RATIO (3.7-5.6); Chloride 105 mMol/L (98-107); Cholesterol 137 mg/dL (132-200); Creatinine (Component) 1.2 mg/dL (0.6-1.3); Globulin 2.8 gm/dL (2.3-3.5); Glucose 138 mg/dL (74-106); Glucose Estimated Average 183 mg/dL (80-131); HDL Cholesterol 56 mg/dL (40-60); LDL Cholesterol,Calculated 56 mg/dL (0-130); Osmolality,Calculated 283 (275-295); Sodium 140 mMol/L (136-145); Thyroid Stimulating Hormone 2.16 uIU/mL (0.55-4.78); Total Protein 7.1 gm/dL (5.7-8.2); Triglycerides 123 mg/dL (30-150); Vitamin B12 424 pg/mL (211-911); Vitamin D 25 Hydroxy Total 53.4 ng/mL (7.3-40.2); eGFR 48 See Note
[2024-12-13 16:21] LABS: Creatinine MALB Rnd Ur 113 mg/dL (30-125); Microalbumin Creat Ratio 7 mg/gCrea (<30); Microalbumin, Random Urine 8 mg/L (0-300)
== END | disposition home or self-care (01) ==
LOC: COPL 13:59
PROVIDERS: PCP Physician Assistant; Referring Provider Physician Assistant; Visit Provider Physician Assistant
DX: Z12.11 Encounter for screening for malignant neoplasm of colon (principal); I10 Essential (primary) hypertension; I63.9 Cerebral infarction, unspecified; E11.65 Type 2 diabetes mellitus with hyperglycemia; R53.83 Other fatigue
CPT/HCPCS: 36415; 80053; 80061; 81001; 82043; 82306; 82570; 82607; 83036; 84443; 85025

== ENCOUNTER → 2025-05-27 | Outpatient (CLI) | payer MEDICARE, BC, SELFPAY ==
--- NOTE | 2025-05-27 13:30 | XR_ITS ---
Examination: Retroperitoneal ultrasound, complete Technique: Multiple high resolution grayscale images of the retroperitoneum obtained, including kidneys and bladder. Exam date and time:May 27, 2025 1323 hours INDICATIONS: Diagnosis chronic kidney disease stage III and laboratory examination performed 3 months ago FINDINGS: Right kidney 10.9 cm cortex 1.3 cm Left kidney 11.6 cm cortex 1.9 cm Moderate renal parenchymal scar formation No hydronephrosis Contracted urinary bladder IMPRESSION: Bilateral renal cortical thinning Moderate bilateral renal parenchymal scar formation. No hydronephrosis
== END | disposition home or self-care (01) ==
PROVIDERS: PCP Family Medicine; Referring Provider Physician Assistant; Visit Provider Physician Assistant
DX: N28.89 Other specified disorders of kidney and ureter (principal)
CPT/HCPCS: 76770

== ENCOUNTER → 2025-05-27 | Outpatient (CLI) | payer MEDICARE, BC, SELFPAY ==
[2025-05-27 12:47] LABS: Alanine Aminotransferase 13 U/L (10-49); Albumin, Serum 4.3 gm/dL (3.4-4.8); Albumin/Globulin Ratio 1.5 (1.2-2.2); Alkaline Phosphatase 84 U/L (46-116); Anion Gap 10 (7-16); Aspartate Amino Transferase 14 U/L (0-34); BUN/Creatinine Ratio 12 Ratio (12-20); Bilirubin,Total 0.4 mg/dL (0.3-1.2); Blood Urea Nitrogen 16 mg/dL (9-23); Calcium 10.1 mg/dL (8.3-10.6); Calcium (Corrected) 10.1 mg/dL (8.5-10.1); Carbon Dioxide 29.4 mMol/L (20.0-31.0); Cardiac Risk Estimate 2.8 RATIO (3.7-5.6); Chloride 103 mMol/L (98-107); Cholesterol 156 mg/dL (132-200); Creatinine (Component) 1.3 mg/dL (0.6-1.3); Globulin 2.8 gm/dL (2.3-3.5); Glucose 134 mg/dL (74-106); HDL Cholesterol 55 mg/dL (40-60); LDL Cholesterol,Calculated 81 mg/dL (0-130); Osmolality,Calculated 286 (275-295); Potassium 4.1 mMol/L (3.4-5.1); Sodium 142 mMol/L (136-145); Total Protein 7.1 gm/dL (5.7-8.2); Triglycerides 100 mg/dL (30-150); eGFR 44 See Note
[2025-05-27 12:48] LABS: Glucose Estimated Average 148 mg/dL (80-131); Hemoglobin A1C 6.8 % Hgb (4.8-6.0)
== END | disposition home or self-care (01) ==
PROVIDERS: PCP Family Medicine; Referring Provider Physician Assistant; Visit Provider Physician Assistant
DX: I12.9 Hypertensive chronic kidney disease with stage 1 through stage 4 chronic kidney disease, or unspecified chronic kidney disease (principal); E11.22 Type 2 diabetes mellitus with diabetic chronic kidney disease; N18.30 Chronic kidney disease, stage 3 unspecified; E11.65 Type 2 diabetes mellitus with hyperglycemia; E78.5 Hyperlipidemia, unspecified
CPT/HCPCS: 36415; 80053; 80061; 83036

== ENCOUNTER → 2025-07-01 | Outpatient (CLI) | payer MEDICARE, BC, SELFPAY ==
--- NOTE | 2025-07-01 12:00 | XR_ITS ---
Examination: Bone densitometry Date and time of exam: July 01, 2025, 12:55 p.m. INDICATIONS: Menopause age 60 Technique: Lumbar spine and hip total bone mineralization values of an calculated. Peak reference and age match control results have been displayed. Findings: Lumbar spine total bone mineralization is 1.292 gm/cm2. This is 2.2 standard deviations above peak reference. This is 4.5 standard deviations above age-matched controls. Hip total bone mineralization is 0.900 gm/cm2 This is 0.3 standard deviations below peak reference. This is 1.3 standard deviations above age-matched controls Impression: There is normal mineralization based on lumbar spine measurements. There is osteopenia based on hip measurements
--- NOTE | 2025-07-01 13:00 | XR_ITS ---
Examination: Screening digital mammography, bilateral Computer aided detection 3-D breast Tomosynthesis, bilateral Date and time of exam: 07/01/2025, 12:50 p.m. Comparisons: Not available. If prior mammograms can be obtained recommend comparison with today's exam. Indications: Screening Technique: Nonmagnified MLO, CC views of the breasts to been obtained, reconstructed from 3-D Tomosynthesis images. R2 computer aided detection program utilized for evaluation of suspicious masses and/or abnormal calcifications. 3-D Tomosynthesis images obtained. Technologist: Findings: The breasts are heterogeneously dense, which may obscure small masses. Multiple benign-appearing oval circumscribed masses seen bilaterally. No evidence of suspicious masses or suspicious calcifications. Impression: BI-RADS category 2: Benign findings Recommend 1 year follow-up mammogram
== END | disposition home or self-care (01) ==
LOC: CDIM 12:06
PROVIDERS: Referring Provider Physician Assistant; Visit Provider Physician Assistant
DX: Z12.31 Encounter for screening mammogram for malignant neoplasm of breast (principal); Z13.820 Encounter for screening for osteoporosis; R92.323 Mammographic fibroglandular density, bilateral breasts; M85.88 Other specified disorders of bone density and structure, other site
CPT/HCPCS: 77063; 77067; 77080